=== PATIENT | male | born 1990 | race Two or more races ===

== ENCOUNTER 2016-12-02 15:17 | Emergency (ER) | payer SELFPAY ==
[2016-12-02] MEDS ORDERED: LIDOCAINE 1% INJ-PF (10 MG/ML) 30 ML SDV INJ ONE (16:14)
--- NOTE | 2016-12-02 16:14 | ER Document Report ---
ED Medical Screen (RME) - General Chief Complaint: Abscess Stated Complaint: RIGHT LEG PAIN Time Seen by Provider: 12/02/16 16:07 Mode of Arrival: Ambulatory Information source: Patient Notes: Pt is a 26 year old with multiple abscesses to right leg and one to the left x 1 week. He's cut them all with a razor blade that he sterilized and has been spraying hydrogen peroxide on them. Denies fever/chills, hx MRSA. TRAVEL OUTSIDE OF THE [place] IN LAST 30 DAYS: No - Related Data Allergies/Adverse Reactions: No Known Allergies Allergy (Verified 12/02/16 15:30) Past Medical History - General Information source: Patient Renal/ Medical History: Denies: Hx Peritoneal Dialysis - Immunizations Hx Diphtheria, Pertussis, Tetanus Vaccination: Yes Review of Systems - Review of Systems Skin: See HPI Physical Exam - Vital signs Vitals: Temp Pulse Resp BP Pulse Ox 98.7 F 88 16 141/96 H 98 12/02/16 15:28 12/02/16 15:28 12/02/16 15:28 12/02/16 15:28 12/02/16 15:28 - Notes Notes: General: in NAD, smiling SKIN: multiple fluctuant abscess to right lateral leg, one large on and multiple smaller ones, scabbed over, erythematous, tender, one to left medial lower leg Course - Vital Signs Vital signs: Temp Pulse Resp BP Pulse Ox 98.7 F 88 16 141/96 H 98 12/02/16 15:28 12/02/16 15:28 12/02/16 15:28 12/02/16 15:28 12/02/16 15:28
[2016-12-02] MEDS ORDERED: HYDROCODONE/ACETAMINOPHEN 5-325 MG TABLET PO ONE (16:15)
[2016-12-02] MEDS ORDERED: LIDOCAINE 1% INJ-PF (10 MG/ML) 30 ML SDV ONE (19:43)
[2016-12-02] MEDS ORDERED: CEPHALEXIN 500 MG CAPSULE PO ONE (19:45)
[2016-12-02] MEDS ORDERED: SULFAMETHOXAZOLE/TRIMETHOPRIM 800-160 MG TABLET PO ONE (19:45)
--- NOTE | 2016-12-02 19:49 | ER Document Report ---
ED Skin Rash/Insect Bite/Abscs - General Chief Complaint: Abscess Stated Complaint: RIGHT LEG PAIN Time Seen by Provider: 12/02/16 16:07 Mode of Arrival: Ambulatory Notes: The patient is a 26-year-old male, past medical history prior abscesses, presents with numerous abscesses on his right lower leg and small abscesses on his left leg. He was recently released from assisted 2 months ago. He has tried to I&D them with a sterile razor blade with some relief of the pressure. Patient denies history of IV drug use, fevers, numbness, tingling, difficulty walking or leg trauma. TRAVEL OUTSIDE OF THE [place] IN LAST 30 DAYS: No - Related Data Allergies/Adverse Reactions: No Known Allergies Allergy (Verified 12/02/16 15:30) Past Medical History - General Information source: Patient - Social History Smoking Status: Current Every Day Smoker Chew tobacco use (# tins/day): No Frequency of alcohol use: None Drug Abuse: None Family History: Reviewed & Not Pertinent Renal/ Medical History: Denies: Hx Peritoneal Dialysis - Immunizations Hx Diphtheria, Pertussis, Tetanus Vaccination: Yes Review of Systems - Review of Systems Notes: REVIEW OF SYSTEMS: CONSTITUTIONAL: -fevers, -chills EENT: -eye pain, -difficulty swallowing, -nasal congestion CARDIOVASCULAR:-chest pain, -syncope. RESPIRATORY: -cough, -SOB GASTROINTESTINAL: -abdominal pain, - nausea, -vomiting, -diarrhea GENITOURINARY: -dysuria, -hematuria MUSCULOSKELETAL: -back pain, -neck pain SKIN: +multiple leg abscesses HEMATOLOGIC: -easy bruising or bleeding. LYMPHATIC: -swollen, enlarged glands. NEUROLOGICAL: -altered mental status or loss of consciousness, -headache, - neurologic symptoms PSYCHIATRIC: -anxiety, -depression. ALL OTHER SYSTEMS REVIEWED AND NEGATIVE. Physical Exam - Vital signs Vitals: Temp Pulse Resp BP Pulse Ox 98.7 F 88 16 141/96 H 98 12/02/16 15:28 12/02/16 15:28 12/02/16 15:28 12/02/16 15:28 12/02/16 15:28 - Notes Notes: PHYSICAL EXAMINATION: GENERAL: Well-appearing, well-nourished and in no acute distress. HEAD: Atraumatic, normocephalic. EYES: Pupils equal round and reactive to light, extraocular movements intact, sclera anicteric, conjunctiva are normal. ENT: nares patent, oropharynx clear without exudates. Moist mucous membranes. NECK: Normal range of motion, supple without lymphadenopathy LUNGS: Breath sounds clear to auscultation bilaterally and equal. No wheezes rales or rhonchi. HEART: Regular rate and rhythm without murmurs ABDOMEN: Soft, nontender, normoactive bowel sounds. No guarding, no rebound. No masses appreciated. EXTREMITIES: Normal range of motion, no pitting or edema. No cyanosis. NEUROLOGICAL: Cranial nerves grossly intact. Normal speech, normal gait. Normal sensory and motor exams. PSYCH: Normal mood, normal affect. SKIN: 3 cm pointed abscess on lateral aspect of right lower leg, 3 cm pointed abscess on medial aspect of right lower leg, 2 cm pointed abscess on right anterior leg, multiple pustules on left anterior leg. Course - Re-evaluation Re-evalutation: Patient appears well. 3 abscesses incised and drained with serosanguineous discharge. There is surrounding cellulitis, so will begin Bactrim and Keflex. Given strict return precautions and he understands. - Vital Signs Vital signs: Temp Pulse Resp BP Pulse Ox 98.7 F 88 16 141/96 H 98 12/02/16 15:28 12/02/16 15:28 12/02/16 15:28 12/02/16 15:28 12/02/16 15:28 Procedures - Incision and Drainage Right Leg Time completed: 20:10 Type: Simple, Multiple Anesthetic type: 1% Lidocaine mL's of anesthetic: 15 Blade size: 11 I&D procedure: Betadine prep applied, Chlorprep applied, Shurclens applied, Sterile dressing applied Incision Method: Incision made by scalpel Amount/type of drainage: Serosanguineous drainage 15 mL Discharge - Discharge Clinical Impression: Multiple abscesses of both legs Condition: Stable Disposition: HOME, SELF-CARE Additional Instructions: ABSCESS: You have an abscess (boil). This a pus-forming infection, usually due to staph. Some boils may be left to drain on their own, but most require lancing. From the time the tender lump first appears, it may be three or four days before the abscess is ready to jermain. Local heat and rest help at this stage of treatment. An antibiotic may prevent spread of the infection. Once the abscess is opened, packing may be placed into it. This is done so pus is not sealed inside by premature closure of the cavity. The packing will be removed at your follow-up visit or you may be advised to remove it yourself at home. Sometimes this packing must be replaced a few times during healing. The wound will heal with surprisingly little scar. Depending on the size and location of an abscess, healing can take one to four weeks. You may shower and wash the area around the incision site two or three times a day. Antibiotics may be prescribed, but are usually not necessary after an abscess has been drained. If you develop fever, chills, worsening pain, or increasing swelling in the area, call the doctor or return immediately. POST INCISION AND DRAINAGE: You have had an incision made to allow drainage of an abscess. The incision must remain open so that pus and debris can drain from the wound. If the abscess cavity is large, packing is placed. This keeps the tissues from collapsing and trapping pus inside, while the body shrinks the cavity. The packing may need to be replaced every day or two. The physician will instruct you on the packing. Keep a bulky dressing over the area. Replace it if it becomes saturated with blood or pus. Do not disturb the packing (if present). You may shower and cleanse the area with gentle soap and warm water two or three times a day. Local warmth may be soothing, and may promote faster healing. Return if you develop high fever or chills, or if you note spreading redness, increasing swelling, or increasing tenderness. MRSA CELLULITIS: You have an infection of your skin and underlying soft tissues called cellulitis. This is due to bacteria, which can enter through any break in the skin, or even through an irritated hair follicle. Untreated, cellulitis will usually worsen and may form an abscess which requires draining. Although many bacterial organisms can cause cellulitis and abscess formations, the most likely bacteria is Methicillin-Resistant Staph Aureus, or MRSA for short. Antibiotics are required. Usually, warm packs or warm soaks, and elevation of the infected area are recommended. You should start getting better within 24 to 36 hours. Most infections respond quickly to the right medication. Follow-up care is important, however, to check for abscess (boil) formation, unsuspected foreign body, or resistant infection. If you develop fever, chills, or if the area of infection is becoming rapidly more swollen or painful, call the doctor at once. ORAL NARCOTIC MEDICATION: You have been given a prescription for pain control. This medication is a narcotic. It's best taken with food, as nausea can result if taken on an empty stomach. Don't operate machinery or drive within six hours of taking this medication. Do not combine this medicine with alcohol, or with any medication which can cause sedation (such as cold tablets or sleeping pills) unless you get permission from the physician. Narcotics tend to cause constipation. If possible, drink plenty of fluids and eat a diet high in fiber and fruits. CEPHALEXIN: The antibiotic you've been prescribed is a member of the cephalosporin class. This type of antibiotic covers a wide variety of infections, including those of the skin, lungs, and urinary tract. It's useful for staph infections. This antibiotic is slightly similar to the penicillin family. In rare cases , a person who is allergic to penicillin will also be allergic to this medication. If you have had a severe allergic reaction to penicillin, and have not taken this antibiotic since that time, notify your doctor. Antibiotics which cover many germs ("broad spectrum" antibiotics) are more likely to cause diarrhea or "yeast" infections. Women prone to vaginal yeast problems may suffer an attack after taking this antibiotic. In infants, oral thrush (white spots "stuck" on the cheek) or yeast diaper rash may result. See your doctor if these problems occur. Call at once if you develop itching, hives , shortness of breath, or lightheadedness. TRIMETHOPRIM-SULFA: You have been given a prescription for trimethoprim-sulfa (TMS, Septra, Bactrim). This is a combination antibiotic of the sulfa class, often used for urinary tract infections, middle ear infections, bronchitis, shigella intestinal infection, and Pneumocystis pneumonia. TMS is usually well-tolerated. Occasional side effects include nausea and decreased appetite. Septra is not recommended for infants less than two months of age. Do not take this medication if you have experienced severe side effects or allergy to sulfa medicine. You should stop this medicine at once and contact your physician if you develop any rash, joint pain, shortness of breath, bruising, or jaundice ( yellow color in the skin), or if you develop any other new or unusual symptoms. FOLLOW-UP CARE: Most simple abscesses will not require a follow up visit. If you had packing placed in the abscess, remove it as instructed by the physician. If you have been referred to a physician for follow-up care, call the physicians office for an appointment as you were instructed or within the next two days. If you experience worsening or a significant change in your symptoms, return to the Emergency Department at any time for re-evaluation. Prescriptions: Cephalexin Monohydrate [Keflex 500 mg Capsule] 500 mg PO Q8H 10 Days capsule Hydrocodone/Acetaminophen [[place] 5-325 mg Tablet] 1 tab PO Q6H PRN #7 tablet PRN Reason: Sulfamethoxazole/Trimethoprim [Bactrim Ds Tablet] 2 each PO Q12H 10 Days tablet Referrals: CHIOMA CHATMAN MD [ACTIVE STAFF] - Follow up as needed
[2016-12-02 21:08] VITALS: BP 138/82
== END 2016-12-02 20:45 | disposition home or self-care (01) ==
LOC: ER 15:17
PROC: 0H9KXZZ Drainage of Right Lower Leg Skin, External Approach (ICD-10-PCS; principal; 2016-12-02)
DX: L02.415 Cutaneous abscess of right lower limb (principal); L03.115 Cellulitis of right lower limb; L02.416 Cutaneous abscess of left lower limb; F17.200 Nicotine dependence, unspecified, uncomplicated
CPT/HCPCS: 99283

== ENCOUNTER 2018-06-16 22:44 | Inpatient (IN) | payer SELFPAY ==
[2018-06-16] MEDS ORDERED: FUROSEMIDE INJ/PF 20 MG/2 ML SDV ONE (22:55)
[2018-06-16] MEDS ORDERED: FUROSEMIDE INJ/PF 20 MG/2 ML SDV IV ONE (23:01)
--- NOTE | 2018-06-16 23:09 | ER Document Report ---
ED General - General Stated Complaint: POSSIBLE OVERDOSE Time Seen by Provider: 06/16/18 22:58 Cannot obtain history due to: Unstable vital signs, Altered mental status Notes: Patient is a 28-year old male who presents with complaints of shortness of breath. History is extremely limited secondary to the degree of the patient's acuity at time of presentation. EMS reports that the patient was found unresponsive in his bathroom by his significant other. EMS was called. Police did arrive first, administered 8 mg of intranasal naloxone. Patient then woke up but rather quickly developed shortness of breath and became diaphoretic. EMS noted that he became increasingly hypoxic in route to the hospital and required supplement oxygen application. Patient states that he knows that he took something but cannot recall what. Believes he only smoked marijuana. Denies history of similar symptoms in the past. Denies use of opiates. History is otherwise limited secondary to the patient's acuity. TRAVEL OUTSIDE OF THE [place] IN LAST 30 DAYS: No - Related Data Allergies/Adverse Reactions: No Known Allergies Allergy (Verified 12/02/16 15:30) Past Medical History - General Information source: Patient - Social History Smoking Status: Current Every Day Smoker Frequency of alcohol use: Occasional Drug Abuse: Marijuana Lives with: Spouse/Significant other Family History: Reviewed & Not Pertinent Renal/ Medical History: Denies: Hx Peritoneal Dialysis - Immunizations Hx Diphtheria, Pertussis, Tetanus Vaccination: Yes Review of Systems - Review of Systems Notes: Constitutional: Negative for fever. HENT: Negative for sore throat. Eyes: Negative for visual changes. Cardiovascular: Negative for chest pain. Respiratory: Positive for shortness of breath. Gastrointestinal: Negative for abdominal pain, positive for nausea Genitourinary: Negative for dysuria. Musculoskeletal: Negative for back pain. Skin: Negative for rash. Neurological: Negative for headaches, weakness or numbness. 10 point ROS negative except as marked above and in HPI. Physical Exam - Vital signs Vitals: Temp Pulse Resp BP Pulse Ox 98.5 F 133 H 28 H 94/76 L 75 L 06/16/18 22:45 06/16/18 22:45 06/16/18 22:45 06/16/18 22:45 06/16/18 22:45 Interpretation: Tachycardic, Hypoxic, Tachypneic Notes: PHYSICAL EXAMINATION: GENERAL: Ill in appearance, in distress HEAD: Atraumatic, normocephalic. EYES: Pupils equal round and reactive to light, extraocular movements intact, sclera anicteric, conjunctiva are normal. ENT: nares patent, oropharynx clear without exudates. Moderately dry mucous membranes. NECK: Normal range of motion, supple without lymphadenopathy LUNGS: Severe respiratory distress, breathing 45 times per minute, scattered rales in all lung mejia. Retractions in the supraclavicular and intercostal space is present. HEART: Regular tachycardia without murmurs ABDOMEN: Soft, nontender, normoactive bowel sounds. No guarding, no rebound. No masses appreciated. EXTREMITIES: Normal range of motion, no pitting or edema. No cyanosis. NEUROLOGICAL: No focal neurological deficits. Moves all extremities spontaneously and on command. PSYCH: Anxious, somewhat tremulous SKIN: Warm, Dry, normal turgor, no rashes or lesions noted. Course - Re-evaluation Re-evalutation: 06/16/18 23:12 Patient presents in respiratory distress, diffuse B-lines on bedside ultrasound with hypoxemia to 82% on room air after receiving 8 mg of intranasal naloxone for presumed opiate overdose. The patient appears unfortunately to be having Narcan induced pulmonary edema with associated respiratory distress. Patient will be immediately placed on BiPAP for positive pressure ventilation as well as given 20 mill grams of IV furosemide. Initial borderline hypotension immediately resolved some of my evaluation at 127 on 81 without any int ervention. Chest x-ray pending. Broad labs will be obtained. Patient is critically ill, require frequent and regular reassessments. 06/16/18 23:42 Patient ripped off all of his monitor leads, took off BiPAP and stood up to urinate. Patient's saturations dropped into the 70s when he did this he became quite tachycardic. Patient was placed back in the bed, BiPAP replaced, saturating 95% on 60% O2. Patient remains critically ill chest x-ray shows pulmonary edema pattern as anticipated based on ultrasound and clinical history. EKG shows sinus tachycardia otherwise unremarkable. Labs pending. 06/17/18 00:10 Patient's work of breathing it much improved on BiPAP. Saturating 96% on 60% FiO2. Heart rate downtrending to 130 currently. Blood pressure 117/80. Labs note a mildly elevated troponin at 0.05 likely secondary to pulmonary edema and work of breathing. BNP normal. Additional labs otherwise unremarkable. Urine drug screen pending. Will discuss with the hospitalist as patient will require admission on noninvasive positive pressure ventilation. 06/17/18 00:51 I have discussed this case with Dr. Man who has accepted the patient for admission. Patient remains clinically improving, current saturations at 98% on 60% FiO2. Heart rate in the 120s. - Vital Signs Vital signs: Temp Pulse Resp BP Pulse Ox 98.5 F 133 H 30 H 113/82 96 06/16/18 22:45 06/16/18 22:45 06/17/18 00:30 06/17/18 00:16 06/17/18 00:30 - Laboratory Result Diagrams: 06/16/18 23:00 06/16/18 23:00 Laboratory results interpreted by me: 06/16/18 06/16/18 23:00 23:00 WBC 18.3 H RBC 5.68 H Seg Neutrophils % 87.2 H Lymphocytes % 7.8 L Absolute Neutrophils 16.0 H Glucose 121 H Salicylates < 1.0 L Acetaminophen < 10 L - Diagnostic Test Radiology reviewed: Image reviewed, Reports reviewed Radiology results interpreted by me: 06/17/18 00:52 Chest x-ray: Scattered pulmonary edema bilaterally - EKG Interpretation by Me Additional EKG results interpreted by me: 06/17/18 00:52 Sinus tachycardia, rate 123. No ST elevations or depressions. QTC is 452. Critical Care Note - Critical Care Note Total time excluding time spent on procedures (mins): 40 Comments: Critical care time spent obtaining history from patient or surrogate, discussions with consultants, development of treatment plan with patient or surrogate, evaluation of patient's response to treatment, examination of patient, ordering and performing treatments and interventions, ordering and review of laboratory studies, re-evaluation of patient's condition, ordering and review of radiographic studies and review of old charts Discharge - Discharge Clinical Impression: Respiratory distress, Naloxone-induced pulmonary edema, Acute respiratory failure with hypoxia Pulmonary edema Qualifiers: Chronicity: acute Qualified Code(s): J81.0 - Acute pulmonary edema Condition: Fair Disposition: ADMITTED INPATIENT Admitting Provider: Hospitalist Unit Admitted: [facility]
[2018-06-16] MEDS ORDERED: ONDANSETRON HCL INJ/PF 4 MG/2 ML SDV ONE (23:10)
[2018-06-16] MEDS ORDERED: ONDANSETRON HCL INJ/PF 4 MG/2 ML SDV IV ONE (23:12)
[2018-06-16 23:18] LABS: ABSOLUTE LYMPHOCYTES (AUTO) 1.4 10^3/uL (0.5-4.7); ABSOLUTE MONOCYTES (AUTO) 0.9 10^3/uL (0.1-1.4); BASOPHILS % (AUTO) 0.1 % (0-2); EOSINOPHILS % (AUTO) 0.2 % (0-6); HEMATOCRIT 49.1 % (37.9-51.0); HEMOGLOBIN 16.2 g/dL (13.5-17.0); LYMPHOCYTES % (AUTO) 7.8 % (13-45); MEAN CORPUSCULAR HEMOGLOBIN 28.5 pg (27.0-33.4); MEAN CORPUSCULAR VOLUME 86 fl (80-97); MONOCYTES % (AUTO) 4.7 % (3-13); PLATELET COUNT 222 10^3/uL (150-450); RED BLOOD COUNT 5.68 10^6/uL (4.35-5.55); RED CELL DISTRIBUTION WIDTH 13.8 % (11.5-14.0); SEGMENTED NEUTROPHILS % (AUTO) 87.2 % (42-78); TOTAL CELLS COUNTED % (AUTO) 100 %; VENOUS BLOOD BASE EXCESS -1.6 mmol/L; VENOUS BLOOD HCO3 24.9 mmol/L (20-32); VENOUS BLOOD PH 7.33 (7.30-7.42); WHITE BLOOD COUNT 18.3 10^3/uL (4.0-10.5)
[2018-06-16 23:34] LABS: ALANINE AMINOTRANSFERASE 44 U/L (21-72); ALBUMIN 4.3 g/dL (3.5-5.0); ALKALINE PHOSPHATASE 43 U/L (38-126); ANION GAP 12 (5-19); ASPARTATE AMINO TRANSFERASE 45 U/L (17-59); BILIRUBIN,DIRECT 0.2 mg/dL (0.0-0.4); BILIRUBIN,TOTAL 0.3 mg/dL (0.2-1.3); BLOOD UREA NITROGEN 13 mg/dL (7-20); CALCIUM 9.1 mg/dL (8.4-10.2); CARBON DIOXIDE 25 mmol/L (22-30); CHLORIDE 103 mmol/L (98-107); GLUCOSE 121 mg/dL (75-110); POTASSIUM 4.1 mmol/L (3.6-5.0); SODIUM 140.3 mmol/L (137-145)
[2018-06-16 23:37] LABS: ACETAMINOPHEN < 10 ug/mL (10-30); ALCOHOL < 10 mg/dL (NONE DETECTED); SALICYLATE < 1.0 mg/dL (2.0-20.0)
[2018-06-16 23:46] LABS: TROPONIN I 0.05 ng/mL
--- NOTE | 2018-06-17 00:03 | RADIOLOGY REPORT (SQ) ---
EXAM DESCRIPTION: XR CHEST 1 VIEW COMPLETED DATE/TME: 06/16/2018 23:00 CLINICAL HISTORY: 28 years, Male, hypoxia, distress Comparison: None FINDINGS: Diffuse hazy appearance of the lungs bilaterally. No pleural abnormalities. Cardiac silhouette is normal in size. IMPRESSION: Diffuse hazy appearance of the lungs may be related to edema. There is no focal pulmonary opacity.
[2018-06-17 00:05] LABS: APPEARANCE,URINE CLEAR; BILIRUBIN,URINE NEGATIVE (NEGATIVE); COLOR,URINE STRAW; GLUCOSE, URINE NEGATIVE (NEGATIVE); KETONES,URINE NEGATIVE (NEGATIVE); LEUKOCYTE ESTERASE,URINE NEGATIVE (NEGATIVE); NITRITE,URINE NEGATIVE (NEGATIVE); PROTEIN,URINE NEGATIVE (NEGATIVE); UROBILINOGEN,URINE NEGATIVE mg/dL (<2.0)
[2018-06-17 00:14] LABS: URINE AMPHETAMINES SCREEN UNCONFIRMED POSITIVE; URINE BARBITURATES SCREEN NEGATIVE; URINE BENZODIAZEPINES SCREEN NEGATIVE; URINE COCAINE SCREEN NEGATIVE; URINE MARIJUANA (THC) SCREEN NEGATIVE; URINE METHADONE SCREEN NEGATIVE; URINE PHENCYCLIDINE SCREEN NEGATIVE
[2018-06-17] MEDS ORDERED: ACETAMINOPHEN 325 MG TABLET PO PRN (00:41)
[2018-06-17] MEDS ORDERED: HYDRALAZINE HCL INJ/PF 20 MG/1 ML SDV IV PRN (00:41)
[2018-06-17] MEDS ORDERED: IPRATROPIUM/ALBUTEROL 0.5-2.5 MG/3 ML AMPUL NEB PRN (00:41)
[2018-06-17] MEDS ORDERED: LORAZEPAM INJ 2 MG/1 ML VIAL IV PRN (00:41)
[2018-06-17] MEDS ORDERED: MAG HYDROX/AL HYDROX/SIMETH SUSP 30 ML UDCUP PO PRN (00:41)
[2018-06-17 01:19] LABS: PHOSPHORUS 5.7 mg/dL (2.5-4.5)
[2018-06-17 03:18] VITALS: BP 112/75
[2018-06-17] MEDS ORDERED: HEPARIN SOD (PORCINE) 5,000 UNIT/ML 1 ML SYRINGE SUBCUT SCH (06:00)
--- NOTE | 2018-06-17 06:38 | H&P/Discharge Summary ---
Discharge Summary Admission Date/PCP: 06/17/18 01:04 Discharge Date: 06/17/18 Resuscitation Status: Full Code - Discharge Diagnosis (1) Acute respiratory failure with hypoxia Is this a current diagnosis for this admission?: Yes Summary: Patient found unresponsive in bathroom by significant other of unclear duration, EMS administers 8 mg of intranasal Narcan resulting in prompt awakening with tachypnea and tachycardia. In the emergency room he was short of breath with persistent tachypnea, leukocytosis and a chest x-ray with pulmonary edema. Patient denied substance abuse or current medications but urine drug screen positive for amphetamine only. He is referred to the hospitalist for admission requiring oxygen and BiPAP. Promptly after arrival to the telemetry floor he is refusing BiPAP with oxygen saturations of 97% on room air with resolution of tachypnea insisting on leaving AGAINST MEDICAL ADVICE. (2) Overdose Is this a current diagnosis for this admission?: Yes Summary: Patient admits marijuana to ER provider, urine drug screen positive for amphetamine, immediate Narcan resolution of obtundation suggest opiate overdose. Patient did not require further doses of Narcan. Supportive care refusing counseling (3) Substance abuse Is this a current diagnosis for this admission?: Yes Summary: Please see #2 (4) Leukocytosis Is this a current diagnosis for this admission?: Yes Summary: Suspected stress reaction, no fever patient refuses further investigation or treatment leaving AMA Home Medications: Carbamazepine [Tegretol 200 mg Tablet] 400 mg PO DAILY 06/17/18 Carbamazepine [Tegretol 200 mg Tablet] 600 mg PO HSP PRN 06/17/18 Mirtazapine [Remeron] 60 mg PO HSP PRN 06/17/18 Sertraline HCl [Zoloft] 100 mg PO DAILY 06/17/18 Ziprasidone HCl [Geodon] 80 mg PO HSP PRN 06/17/18 Allergies/Adverse Reactions: No Known Allergies Allergy (Verified 12/02/16 15:30) History of Present Illness Admission Date/PCP: 06/17/18 01:04 Patient complains of: Altered mental status History of Present Illness: JOHN THAPA is a 28 year old male with history of bipolar versus schizophrenia, tobacco and polysubstance abuse found unresponsive in bathroom by significant other of unclear duration, EMS administers 8 mg of intranasal Narcan resulting in prompt awakening with tachypnea and tachycardia. In the emergency room he was short of breath with persistent tachypnea, leukocytosis and a chest x-ray with pulmonary edema. Patient denied substance abuse or current medications but urine drug screen positive for amphetamine only. He is referred to the hospitalist for admission requiring oxygen and BiPAP. Promptly after arrival to the telemetry floor he is refusing BiPAP with oxygen saturations of 97% on room air with resolution of tachypnea insisting on leaving AGAINST MEDICAL ADVICE. Past Medical History Medical History: None Cardiac Medical History: Reports: None Pulmonary Medical History: Reports: Bronchitis EENT Medical History: Reports: None Neurological Medical History: Reports: None Endocrine Medical History: Reports: None Renal/ Medical History: Reports: None Malignancy Medical History: Reports: None GI Medical History: Reports: None Musculoskeltal Medical History: Reports: None Psychiatric Medical History: Reports: Bipolar Disorder, Schizoaffective Diso rder, Substance Abuse, Tobacco Dependency Past Surgical History Past Surgical History: Reports: None Social History Information Source: Patient, Emergency Med Personnel, [facility] Records Lives with: Spouse/Significant other Smoking Status: Current Every Day Smoker Cigarettes Packs Per Day: 0.5 Frequency of Alcohol Use: None Hx Recreational Drug Use: Yes Drugs: Marijuana, Other - Amphetamine and opiate Hx Prescription Drug Abuse: No - Advance Directive Resuscitation Status: Full Code Family History Family History: COPD Parental Family History Reviewed: Yes Children Family History Reviewed: Yes Sibling(s) Family History Reviewed.: Yes Review of Systems Constitutional: ABSENT: chills, fever(s), headache(s), weight gain, weight loss Eyes: ABSENT: visual disturbances Ears: ABSENT: hearing changes Cardiovascular: ABSENT: chest pain, dyspnea on exertion, edema, orthropnea, pa lpitations Respiratory: ABSENT: cough, hemoptysis Gastrointestinal: ABSENT: abdominal pain, constipation, diarrhea, hematemesis, hematochezia, nausea, vomiting Genitourinary: ABSENT: dysuria, hematuria Musculoskeletal: ABSENT: joint swelling Integumentary: ABSENT: rash, wounds Neurological: ABSENT: abnormal gait, abnormal speech, confusion, dizziness, focal weakness, syncope Psychiatric: ABSENT: anxiety, depression, homidical ideation, suicidal ideation Endocrine: ABSENT: cold intolerance, heat intolerance, polydipsia, polyuria Hematologic/Lymphatic: ABSENT: easy bleeding, easy bruising Physical Exam Vital Signs: Temp Pulse Resp BP Pulse Ox 97.9 F 131 H 26 H 112/75 100 03/02/19 02:47 06/17/18 02:47 06/17/18 02:47 06/17/18 02:47 06/17/18 02:47 Intake & Output 06/15/18 06/16/18 06/17/18 11:59 11:59 11:59 Weight 85.3 kg General appearance: PRESENT: cooperative, disheveled, mild distress, well- developed, well-nourished. ABSENT: no acute distress Head exam: PRESENT: atraumatic, normocephalic Eye exam: PRESENT: conjunctiva pink, EOMI, PERRLA. ABSENT: scleral icterus Ear exam: PRESENT: normal external ear exam Mouth exam: PRESENT: moist, tongue midline Neck exam: ABSENT: carotid bruit, JVD, lymphadenopathy, thyromegaly Respiratory exam: PRESENT: accessory muscle use, crackles, retraction, symmetrical, tachypnea. ABSENT: rhonchi, stridor, wheezes Cardiovascular exam: PRESENT: RRR. ABSENT: diastolic murmur, rubs, systolic murmur Pulses: PRESENT: normal dorsalis pedis pul Vascular exam: PRESENT: normal capillary refill GI/Abdominal exam: PRESENT: normal bowel sounds, soft. ABSENT: distended, guarding, mass, organolmegaly, rebound, tenderness Rectal exam: PRESENT: deferred Extremities exam: PRESENT: full ROM. ABSENT: calf tenderness, clubbing, pedal edema Neurological exam: PRESENT: alert, awake, oriented to person, oriented to place, oriented to time, oriented to situation, CN II-XII grossly intact. ABSENT: motor sensory deficit Psychiatric exam: PRESENT: appropriate affect, normal mood. ABSENT: homicidal ideation, suicidal ideation Skin exam: PRESENT: dry, intact, warm. ABSENT: cyanosis, rash Results Laboratory Results: 06/16/18 23:00 06/16/18 23:00 06/16/18 06/16/18 06/16/18 23:00 23:00 23:00 WBC 18.3 H RBC 5.68 H Hgb 16.2 Hct 49.1 MCV 86 MCH 28.5 MCHC 33.0 RDW 13.8 Plt Count 222 Seg Neutrophils % 87.2 H Lymphocytes % 7.8 L Monocytes % 4.7 Eosinophils % 0.2 Basophils % 0.1 Absolute Neutrophils 16.0 H Absolute Lymphocytes 1.4 Absolute Monocytes 0.9 Absolute Eosinophils 0.0 Absolute Basophils 0.0 VBG pH 7.33 VBG pCO2 48.0 VBG HCO3 24.9 VBG Base Excess -1.6 Sodium 140.3 Potassium 4.1 Chloride 103 Carbon Dioxide 25 Anion Gap 12 BUN 13 Creatinine 0.92 Est GFR ( Amer) > 60 Est GFR (Non-Af Amer) > 60 Glucose 121 H Calcium 9.1 Phosphorus Magnesium Total Bilirubin 0.3 AST 45 ALT 44 Alkaline Phosphatase 43 Total Protein 7.0 Albumin 4.3 Urine Color Urine Appearance Urine pH Ur Specific [place] Urine Protein Urine Glucose (UA) Urine Ketones Urine Blood Urine Nitrite Ur Leukocyte Esterase Urine WBC (Auto) Urine RBC (Auto) 06/16/18 06/16/18 23:00 23:47 WBC RBC Hgb Hct MCV MCH MCHC RDW Plt Count Seg Neutrophils % Lymphocytes % Monocytes % Eosinophils % Basophils % Absolute Neutrophils Absolute Lymphocytes Absolute Monocytes Absolute Eosinophils Absolute Basophils VBG pH VBG pCO2 VBG HCO3 VBG Base Excess Sodium Potassium Chloride Carbon Dioxide Anion Gap BUN Creatinine Est GFR ( Amer) Est GFR (Non-Af Amer) Glucose Calcium Phosphorus 5.7 H Magnesium 2.2 Total Bilirubin AST ALT Alkaline Phosphatase Total Protein Albumin Urine Color STRAW Urine Appearance CLEAR Urine pH 6.0 Ur Specific [place] 1.010 Urine Protein NEGATIVE Urine Glucose (UA) NEGATIVE Urine Ketones NEGATIVE Urine Blood NEGATIVE Urine Nitrite NEGATIVE Ur Leukocyte Esterase NEGATIVE Urine WBC (Auto) 5 Urine RBC (Auto) 0 06/16/18 23:00 Troponin I 0.050 NT-Pro-B Natriuret Pep 51 Impressions: Chest X-Ray 06/16/18 23:00 IMPRESSION: Diffuse hazy appearance of the lungs may be related to edema. There is no focal pulmonary opacity. Qualifiers - * PATIENT BEING DISCHARGED WITH ANY OF THE FOLLOWING DIAGNOSIS: No
[2018-06-17] MEDS ORDERED: IPRATROPIUM/ALBUTEROL 0.5-2.5 MG/3 ML AMPUL NEB SCH (08:00)
--- NOTE | 2018-06-17 16:33 | EKG REPORT ---
SEVERITY:- OTHERWISE NORMAL ECG - SINUS TACHYCARDIA RIGHT AXIS DEVIATION : Confirmed by: Destiny Lucas 17-Jun-2018 16:32:34
== END 2018-06-17 05:01 | disposition left against medical advice (07) | DRG 917 ==
LOC: ER 22:44 → EH 06-17 01:04 → 3S 06-17 02:40
PROVIDERS: ADMIT Internal Medicine; ATTEND Internal Medicine
PROC: 5A09357 Assistance with Respiratory Ventilation, Less than 24 Consecutive Hours, Continuous Positive Airway Pressure (ICD-10-PCS; principal; 2018-06-17)
DX: T40.601A Poisoning by unspecified narcotics, accidental (unintentional), initial encounter (principal); J96.01 Acute respiratory failure with hypoxia; Y92.002 Bathroom of unspecified non-institutional (private) residence as the place of occurrence of the external cause; F31.9 Bipolar disorder, unspecified; F15.10 Other stimulant abuse, uncomplicated; F12.10 Cannabis abuse, uncomplicated
CPT/HCPCS: 36415; 71045; 80053; 80307; 81001; 82803; 83735; 83880; 84100; 84484; 85025; 87040; 93005; 93010; 94660; 96374; 96375; 99291; J1940; J2405

== ENCOUNTER 2018-09-25 20:53 | Emergency (ER) | payer SELFPAY ==
[2018-09-25] MEDS ORDERED: HALOPERIDOL 5 MG TABLET PO ONE (21:27)
--- NOTE | 2018-09-25 21:29 | ER Document Report ---
Addendum entered and electronically signed by BORA PETERS MD 09/28/18 11:41: Discharge - Discharge Clinical Impression: Suicidal ideation, Involuntary commitment, Substance abuse Condition: Stable Disposition: HOME, SELF-CARE Additional Instructions: You have been evaluated both medical and behavioral health teams and been deemed appropriate for discharge. You are highly encouraged to refrain from using illegal substances and follow through with outpatient mental health services in the form of both medication management and therapeutic services. You have been provided a resource list of area providers including mobile crisis contact information. Please make an appointment in 3 to 5 days of your chosen mental health provider for continued services. DEPRESSION: Your evaluation reveals that you have mental depression. While symptoms may be vague, they often include disturbance of sleep, fatigue, loss of appetite, and general loss of interest in life. While depression may be a side effect of drugs, or a reaction to a major change in your life, many cases have no known cause. If depression is acute, and related to a major loss in your life, you can expect it to clear completely with time. If you have been depressed a long time, are prone to repeated bouts of depression or low mood, or have been thinking of suicide, get help. Depression can be treated with anti-depressant medication and counselling. Long-term depression will often take a few weeks to clear, even with appropriate medication. Follow-up care is important. SUICIDAL IDEATION: Suicidal ideation is a common medical term for thoughts about suicide, which may be as detailed as a formulated plan, without the suicidal act itself. Although most people who undergo suicidal ideation do not commit suicide, some go on to make suicide attempts. The range of suicidal ideation varies greatly from fleeting to detailed planning, role playing, and unsuccessful attempts. While thoughts about suicide are common, most people do not carry out serious actions to commit suicide. Based upon your evaluation and discussion with you, we do not believe you are currently at risk to act upon your thoughts of suicide. You have agreed to return to the Emergency Department, at any time, if you feel inclined to act upon your suicidal thoughts. FOLLOW-UP CARE: If you have been referred to a physician for follow-up care, call the physicians office for an appointment as you were instructed or within the next two days. If you experience worsening or a significant change in your symptoms, notify the physician immediately or return to the Emergency Department at any time for re-evaluation. Prescriptions: Carbamazepine [Tegretol 200 Mg Tablet] 400 mg PO BID #50 tablet Referrals: [facility] [Outside] - Follow up in 3-5 days [facility] [Outside] - Follow up as needed Addendum entered and electronically signed by MARCEL COYLE LCSWA 09/28/18 11:15: Discharge - Discharge Clinical Impression: Suicidal ideation, Involuntary commitment, Substance abuse Condition: Stable Disposition: HOME, SELF-CARE Additional Instructions: You have been evaluated both medical and behavioral health teams and been deemed appropriate for discharge. You are highly encouraged to refrain from using illegal substances and follow through with outpatient mental health services in the form of both medication management and therapeutic services. You have been provided a resource list of area providers including mobile crisis contact information. Please make an appointment in 3 to 5 days of your chosen mental health provider for continued services. DEPRESSION: Your evaluation reveals that you have mental depression. While symptoms may be vague, they often include disturbance of sleep, fatigue, loss of appetite, and general loss of interest in life. While depression may be a side effect of drugs, or a reaction to a major change in your life, many cases have no known cause. If depression is acute, and related to a major loss in your life, you can expect it to clear completely with time. If you have been depressed a long time, are prone to repeated bouts of depression or low mood, or have been thinking of suicide, get help. Depression can be treated with anti-depressant medication and counselling. Long-term depression will often take a few weeks to clear, even with appropriate medication. Follow-up care is important. SUICIDAL IDEATION: Suicidal ideation is a common medical term for thoughts about suicide, which may be as detailed as a formulated plan, without the suicidal act itself. Although most people who undergo suicidal ideation do not commit suicide, some go on to make suicide attempts. The range of suicidal ideation varies greatly f rom fleeting to detailed planning, role playing, and unsuccessful attempts. While thoughts about suicide are common, most people do not carry out serious actions to commit suicide. Based upon your evaluation and discussion with you, we do not believe you are currently at risk to act upon your thoughts of suicide. You have agreed to return to the Emergency Department, at any time, if you feel inclined to act upon your suicidal thoughts. FOLLOW-UP CARE: If you have been referred to a physician for follow-up care, call the physicians office for an appointment as you were instructed or within the next two days. If you experience worsening or a significant change in your symptoms, notify the physician immediately or return to the Emergency Department at any time for re-evaluation. Referrals: [facility] [Outside] - Follow up as needed [facility] [Outside] - Follow up in 3-5 days Original Note: ED General - General Chief Complaint: Psych Problem Stated Complaint: PSYCH Time Seen by Provider: 09/25/18 21:27 Cannot obtain history due to: Altered mental status Notes: Patient is a 28-year-old male with a past medical history unspecified psychiatric illness, history of polysubstance abuse, presents by police officers on involuntary commitment after allegedly threatened to commit suicide today. Patient is a very evasive historian, states that "I might of said something" and his counselors office today. Refuses to elaborate further. History is otherwise unobtainable secondary to patient's unwillingness to cooperate with initial history taking. Denies acute physical complaints. Denies making any attempt to harm himself today. TRAVEL OUTSIDE OF THE [place] IN LAST 30 DAYS: No - Related Data Allergies/Adverse Reactions: No Known Allergies Allergy (Verified 12/02/16 15:30) Past Medical History - General Information source: Patient - Social History Smoking Status: Current Every Day Smoker Chew tobacco use (# tins/day): No Frequency of alcohol use: Occasional Drug Abuse: Heroin Family History: Reviewed & Not Pertinent, COPD Patient has suicidal ideation: Yes Patient has homicidal ideation: No Pulmonary Medical History: Reports: Hx Bronchitis Renal/ Medical History: Denies: Hx Peritoneal Dialysis Psychiatric Medical History: Reports: Hx Bipolar Disorder, Hx Schizoaffective Disorder - Immunizations Hx Diphtheria, Pertussis, Tetanus Vaccination: Yes Review of Systems - Review of Systems Notes: Constitutional: Negative for fever. HENT: Negative for sore throat. Eyes: Negative for visual changes. Cardiovascular: Negative for chest pain. Respiratory: Negative for shortness of breath. Gastrointestinal: Negative for abdominal pain, vomiting or diarrhea. Genitourinary: Negative for dysuria. Musculoskeletal: Negative for back pain. Skin: Negative for rash. Neurological: Negative for headaches, weakness or numbness. 10 point ROS negative except as marked above and in HPI. Physical Exam - Vital signs Vitals: Temp Pulse Resp BP 98.7 F 92 16 130/81 H 09/25/18 20:57 09/25/18 20:57 09/25/18 20:57 09/25/18 20:57 Interpretation: Normal Notes: PHYSICAL EXAMINATION: GENERAL: Well-appearing, well-nourished and in no acute distress. HEAD: Atraumatic, normocephalic. EYES: Pupils equal round and reactive to light, extraocular movements intact, sclera anicteric, conjunctiva are normal. ENT: nares patent, oropharynx clear without exudates. Moist mucous membranes. NECK: Normal range of motion, supple without lymphadenopathy LUNGS: Breath sounds clear to auscultation bilaterally and equal. No wheezes rales or rhonchi. HEART: Regular rate and rhythm without murmurs ABDOMEN: Soft, nontender, normoactive bowel sounds. No guarding, no rebound. No masses appreciated. EXTREMITIES: Normal range of motion, no pitting or edema. No cyanosis. NEUROLOGICAL: No focal neurological deficits. Moves all extremities spontaneously and on command. PSYCH: Poor eye contact, somewhat agitated, redirectable SKIN: Warm, Dry, normal turgor, no rashes or lesions noted. Course - Re-evaluation Re-evalutation: 09/25/18 21:28 Patient presents after apparently expressing suicidal ideation as well as visual hallucinations office today. The patient is quite evasive with me on history taking, states that he "might have said something". Did not give any additional details. Seems somewhat agitated but is otherwise redirectable. Will offer or haloperidol to try to prevent escalation. Standard screening labs will be ordered. Physical exam otherwise unremarkable. Cleared for evaluation and disposition by [facility] in the morning. 09/26/18 04:15 Medical screening labs unremarkable. Patient is still not urinated. Otherwise cleared for evaluation and disposition by [facility]. - Vital Signs Vital signs: Temp Pulse Resp BP Pulse Ox 97.4 F 63 20 137/66 H 99 09/26/18 00:14 09/26/18 00:14 09/26/18 00:14 09/26/18 00:14 09/26/18 00:14 - Laboratory Result Diagrams: 09/25/18 22:54 09/25/18 22:54 Laboratory results interpreted by me: 09/25/18 09/25/18 22:54 22:54 WBC 11.7 H RDW 14.5 H Glucose 112 H Salicylates < 1.0 L Acetaminophen < 10 L - EKG Interpretation by Me Additional EKG results interpreted by me: 09/26/18 04:16 Sinus rhythm, rate 57, no ST elevations or depressions. QTC is 421. Discharge - Discharge Clinical Impression: Suicidal ideation, Involuntary commitment Condition: Fair Disposition: PSYCH HOSP/UNIT
[2018-09-25 23:06] LABS: ABSOLUTE BASOPHILS # (AUTO) 0.1 10^3/uL (0.0-0.2); ABSOLUTE EOSINOPHILS # (AUTO) 0.2 10^3/uL (0.0-0.6); ABSOLUTE LYMPHOCYTES (AUTO) 2.3 10^3/uL (0.5-4.7); ABSOLUTE MONOCYTES (AUTO) 1.1 10^3/uL (0.1-1.4); ABSOLUTE NEUT (AUTO) 8.1 10^3/uL (1.7-8.2); BASOPHILS % (AUTO) 0.4 % (0-2); EOSINOPHILS % (AUTO) 1.5 % (0-6); HEMATOCRIT 43.8 % (37.9-51.0); HEMOGLOBIN 14.6 g/dL (13.5-17.0); LYMPHOCYTES % (AUTO) 19.4 % (13-45); MEAN CORPUSCULAR HEMOGLOBIN 27.7 pg (27.0-33.4); MEAN CORPUSCULAR HGB CONC 33.4 g/dL (32.0-36.0); MEAN CORPUSCULAR VOLUME 83 fl (80-97); MONOCYTES % (AUTO) 9.5 % (3-13); PLATELET COUNT 200 10^3/uL (150-450); RED BLOOD COUNT 5.27 10^6/uL (4.35-5.55); RED CELL DISTRIBUTION WIDTH 14.5 % (11.5-14.0); SEGMENTED NEUTROPHILS % (AUTO) 69.2 % (42-78); TOTAL CELLS COUNTED % (AUTO) 100 %; WHITE BLOOD COUNT 11.7 10^3/uL (4.0-10.5)
[2018-09-25 23:23] LABS: ALANINE AMINOTRANSFERASE 39 U/L (21-72); ALBUMIN 4.3 g/dL (3.5-5.0); ALKALINE PHOSPHATASE 46 U/L (38-126); ANION GAP 10 (5-19); ASPARTATE AMINO TRANSFERASE 30 U/L (17-59); BILIRUBIN,DIRECT 0.2 mg/dL (0.0-0.4); BILIRUBIN,TOTAL 0.5 mg/dL (0.2-1.3); BLOOD UREA NITROGEN 8 mg/dL (7-20); CALCIUM 9.1 mg/dL (8.4-10.2); CARBON DIOXIDE 28 mmol/L (22-30); CHLORIDE 103 mmol/L (98-107); GLUCOSE 112 mg/dL (75-110); POTASSIUM 3.6 mmol/L (3.6-5.0); SODIUM 140.8 mmol/L (137-145); TOTAL PROTEIN 7.2 g/dL (6.3-8.2)
[2018-09-25 23:30] LABS: ACETAMINOPHEN < 10 ug/mL (10-30); ALCOHOL < 10 mg/dL (NONE DETECTED); SALICYLATE < 1.0 mg/dL (2.0-20.0)
--- NOTE | 2018-09-26 07:42 | EKG REPORT ---
SEVERITY:- OTHERWISE NORMAL ECG - SINUS RHYTHM BORDERLINE RIGHT AXIS DEVIATION : Confirmed by: Jean-Pierre Roberto MD 26-Sep-2018 07:41:48
[2018-09-26] MEDS: CARBAMAZEPINE 200 MG TABLET PO SCH ×2 (11:50→17:24)
[2018-09-26] MEDS: BENZTROPINE MESYLATE 1 MG TABLET PO SCH ×2 (11:50→17:24)
[2018-09-26] MEDS: CHLORPROMAZINE HCL 50 MG TABLET PO SCH ×2 (11:50→20:16)
--- NOTE | 2018-09-26 15:27 | PSYCHOLOGICAL NOTE ---
Psych Note - Psych Note Date seen by psych provider: 09/26/18 Psych Note: Presenting Problem: IVC via MCM, SI statements, pacing, talking to himself, noted Hx of A/V Hallucinations and was aggressive towards LE. He was uncooperative with changing clothes and said he did not want to talk with an yone. He was physically restrained and administered Haldol 5MG last night at 2151. Today he was in bed covered from head to toe with his sheet. He did remove sheet from head/face, turned head from side to side, mumbled to self, covered head/face back up with sheet and said "I can't think straight sorry." Still waiting on UDS. Home medications were listed as Geodon 80MG QHS PRN, Zoloft 100MG QD, Remeron 60MG QHS PRN and Tegretol 600MG QHS PRN. Diagnosis: SI Unspecified Psychosis Medication recommendations made by the psychiatric medical provider, Dr. Allie MD., includes: Add Tegretol 500MG twice a day (unsure if was for seizure disorder)/mood stabilization Add Thorazine 50MG every 8 hours for psychosis Add Cogentin 1MG twice a day for tremor side effects often associated with antipsychotic medications Impression/Plan: Recommendation to maintain IVC and seek inpatient hospitalization.
[2018-09-26 17:47] LABS: APPEARANCE,URINE CLEAR; BILIRUBIN,URINE NEGATIVE (NEGATIVE); COLOR,URINE YELLOW; GLUCOSE, URINE NEGATIVE (NEGATIVE); KETONES,URINE NEGATIVE (NEGATIVE); LEUKOCYTE ESTERASE,URINE NEGATIVE (NEGATIVE); NITRITE,URINE NEGATIVE (NEGATIVE); PROTEIN,URINE NEGATIVE (NEGATIVE); URINE SPECIFIC GRAVITY 1.008; UROBILINOGEN,URINE NEGATIVE mg/dL (<2.0)
[2018-09-26 17:59] LABS: URINE BARBITURATES SCREEN NEGATIVE; URINE BENZODIAZEPINES SCREEN NEGATIVE; URINE COCAINE SCREEN NEGATIVE; URINE MARIJUANA (THC) SCREEN NEGATIVE; URINE METHADONE SCREEN NEGATIVE; URINE PHENCYCLIDINE SCREEN NEGATIVE
--- NOTE | 2018-09-26 19:41 | ER Document Report ---
Entered by ANGEL CHRISTIANSON SCRIBE 09/26/18 1035 Acting as scribe for:ISHAAN FREITAS DO Doctor's Note Notes: 09/26/18 10:10 Patient is a 28-year-old male with a past medical history unspecified psychiatric illness, history of polysubstance abuse, presents by police officers on involuntary commitment after allegedly threatened to commit suicide today. Upon entering the room, the patient is sleeping and will not answer any questions. Will follow commands to open eyes and acknowledges there is a food tray in the room. I explained to patient I will come back whenever he is ready to speak. Patient is medically stable. GENERAL: Initially sleeping. Follows some commands. Does not answer most questions. No acute distress. HEAD: Normocephalic, atraumatic. EYES: Pupils equal, round, and reactive to light. Extraocular movements intact. ENT: Oral mucosa moist, tongue midline. NECK: Full range of motion. Supple. Trachea midline. LUNGS: Clear to auscultation bilaterally, no wheezes, rales, or rhonchi. No respiratory distress. HEART: Regular rate and rhythm. No murmurs, gallops, or rubs. ABDOMEN: Soft, non-tender. Non-distended. Bowel sounds present in all 4 quadrants. No guarding, rigidity, or rebound. EXTREMITIES: Moves all 4 extremities spontaneously. NEUROLOGICAL: Sleeping, follows some commands. Does not answer questions. PSYCH: Does not answer most questions. SKIN: Warm, dry, normal turgor. No rashes or lesions noted. 09/26/18 11:23 Have added orders for Tegretol 500 mg twice a day, Thorazine 50 mg every 8 hours and Cogentin 1 mg twice a day as per recommendations by Dr. Kelley. I personally performed the services described in the documentation, reviewed and edited the documentation which was dictated to the scribe in my presence, and it accurately records my words and actions.
[2018-09-27] MEDS: CHLORPROMAZINE HCL 50 MG TABLET PO SCH ×2 (03:20→10:44)
--- NOTE | 2018-09-27 10:18 | ER Document Report ---
Doctor's Note Notes: 09/27/18 10:16 Rounds: Chart reviewed. Patient sleeping soundly did not awaken to my voice so I am going to let him sleep at this time. Being evaluated for an acute psychosis. Reported in the chart that he was suicidal as well. Vital signs are all normal. Lab work was normal except for a clinically insignificant WBC of 11,700. Patient appears to be medically stable for transfer or discharge. Felice Benites MD
[2018-09-27] MEDS: CARBAMAZEPINE 200 MG TABLET PO SCH ×2 (10:40→18:10)
[2018-09-27] MEDS: BENZTROPINE MESYLATE 1 MG TABLET PO SCH ×2 (10:43→18:13)
--- NOTE | 2018-09-27 11:59 | PSYCHOLOGICAL NOTE ---
Psych Note - Psych Note Psych Note: Presenting Problem: IVC via [facility] MCM, Acute Psychosis. Medical staff spoke with patient's work hydrochloric area supervisor last night who noted a Hx of Schizophrenia, noncompliance with medication recently and likely drug use. UDS was positive for methamphetamine. patient admitted to use, did not know when he last used, admitted to and commented "it's too much." He remained guarded as evidenced by staying covered by sheet from head to toe. Diagnosis: SI Unspecified Psychosis Impression/Plan: Recommendation to maintain IVC and continue seeking placement. Work Ship Rigger Apprentice informed medical staff of Hx of Schizophrenia, noncompliance with medication recently and suspected drug use. Consulted with Dr. Espinoza regarding the management and care of patient. ED Physician in agreement with recommendations.
[2018-09-28] MEDS: CARBAMAZEPINE 200 MG TABLET PO SCH (10:13)
[2018-09-28] MEDS: BENZTROPINE MESYLATE 1 MG TABLET PO SCH (10:14)
[2018-09-28 10:19] VITALS: BP 115/66
[2018-09-28] MEDS: CHLORPROMAZINE HCL 50 MG TABLET PO SCH (10:36)
--- NOTE | 2018-09-28 10:36 | ER Document Report ---
Doctor's Note Notes: 09/28/18 10:34 Rounds: Chart reviewed and patient interviewed. Patient says he does not want to talk. Patient is being evaluated for an acute psychosis. Patient's lab studies were positive for amphetamines and otherwise unremarkable. Vital signs are all essentially normal. Patient appears to be medically stable for transfer or discharge. Felice Benites MD
--- NOTE | 2018-09-28 11:37 | PSYCHOLOGICAL NOTE ---
Psych Note - Psych Note Date seen by psych provider: 09/28/18 Time seen by psych provider: 07:45 Psych Note: Reason for Consult: IVC Presenting Problem: IVC via MCM, SI statements, pacing, talking to himself, noted Hx of A/V Hallucinations and was aggressive towards LE. He was uncooperative with changing clothes and said he did not want to talk with anyone. He was physically restrained and administered Haldol 5MG last night at 2151. Today he was in bed covered from head to toe with his sheet. He did remove sheet from head/face, turned head from side to side, mumbled to self, covered head/face back up with sheet and said "I can't think straight sorry." Still arnold ting on UDS. Home medications were listed as Geodon 80MG QHS PRN, Zoloft 100MG QD, Remeron 60MG QHS PRN and Tegretol 600MG QHS PRN. Check in conducted with patient: Patient disclosed that he knows that he was "bad" when he arrived to [facility] stating "I was yelling and stuff." He reports he did not want to come here because he knew he would not be able to leave. He reports "I think I was brought here because I said I was going to kill myself I think." He reports that he is never been inpatient psychiatric treatment before but does have diagnosis of bipolar, PTSD, and schizophrenia. He reports he is supposed be taking medications however is unsure exactly what the doses are in the names. He confirms that he does have a substance abuse history however states that it is only marijuana in the past denies any current. He states he was living with his girlfriend however is thinking about moving in with a friend instead. He reports he has no concerns at this time. Diagnosis: Substance abuse; methamphetamine PTSD per history provided by patient schizoaffective bipolar type per history provided by patient Medication recommendations made by the psychiatric medical provider, Dr. Allie MD., includes: Continue home medication of Tegretol 500MG twice a day Impression/Plan: Patient is recommended for rescind of IVC and is cleared from acute psychiatric services. Patient was under the influence of methamphetamine upon arrival. Patient is no longer under the influence or demonstrating behaviors of responding to internal stimuli i.e. organized linear thought process, maintains eye contact, normal conversational speech. Patient denies thoughts of wanting to harm himself or others. Patient does have psychiatric history however denies having any current outpatient mental health services. Patient is encouraged to follow through with outpatient mental health services and has been provided resource list of area providers including mobile crisis contact information. Patient is highly encouraged to abstain from illegal substance use and was provided resources for sobriety. Dr. Espinoza was consulted to care management of this patient; attending physicians in agreement with recommendations and disposition per
== END 2018-09-28 12:06 | disposition home or self-care (01) ==
LOC: ER 20:53
DX: R45.851 Suicidal ideations (principal); F19.10 Other psychoactive substance abuse, uncomplicated; F17.200 Nicotine dependence, unspecified, uncomplicated
CPT/HCPCS: 93005; 99285; 36415; 80307 ×4; 85025; 80053; 81001; 93010; J3490 ×3

== ENCOUNTER 2019-05-10 00:52 | Emergency (ER) | payer OTHER ==
[2019-05-10 01:54] LABS: ABSOLUTE LYMPHOCYTES (AUTO) 1.5 10^3/uL (0.5-4.7); ABSOLUTE MONOCYTES (AUTO) 0.9 10^3/uL (0.1-1.4); ABSOLUTE NEUT (AUTO) 5.1 10^3/uL (1.7-8.2); BASOPHILS % (AUTO) 0.5 % (0-2); EOSINOPHILS % (AUTO) 0.5 % (0-6); HEMATOCRIT 44.3 % (37.9-51.0); HEMOGLOBIN 15.4 g/dL (13.5-17.0); LYMPHOCYTES % (AUTO) 20.3 % (13-45); MEAN CORPUSCULAR HEMOGLOBIN 29.5 pg (27.0-33.4); MEAN CORPUSCULAR HGB CONC 34.8 g/dL (32.0-36.0); MEAN CORPUSCULAR VOLUME 85 fl (80-97); MONOCYTES % (AUTO) 11.7 % (3-13); PLATELET COUNT 194 10^3/uL (150-450); RED BLOOD COUNT 5.23 10^6/uL (4.35-5.55); RED CELL DISTRIBUTION WIDTH 13.4 % (11.5-14.0); TOTAL CELLS COUNTED % (AUTO) 100 %; WHITE BLOOD COUNT 7.6 10^3/uL (4.0-10.5)
[2019-05-10 02:03] LABS: ALBUMIN 4.6 g/dL (3.5-5.0); ALKALINE PHOSPHATASE 38 U/L (38-126); ANION GAP 8 (5-19); ASPARTATE AMINO TRANSFERASE 31 U/L (17-59); BILIRUBIN,DIRECT 0.1 mg/dL (0.0-0.4); BILIRUBIN,TOTAL 1.3 mg/dL (0.2-1.3); BLOOD UREA NITROGEN 16 mg/dL (7-20); CALCIUM 9.9 mg/dL (8.4-10.2); CARBON DIOXIDE 32 mmol/L (22-30); CHLORIDE 98 mmol/L (98-107); GLUCOSE 119 mg/dL (75-110); POTASSIUM 4.2 mmol/L (3.6-5.0); TOTAL PROTEIN 7.9 g/dL (6.3-8.2)
[2019-05-10 02:04] LABS: ACETAMINOPHEN < 10 ug/mL (10-30); ALCOHOL < 10 mg/dL (NONE DETECTED); SALICYLATE < 1.0 mg/dL (2.0-20.0)
--- NOTE | 2019-05-10 02:40 | ER Document Report ---
ED General - General Chief Complaint: Psych Problem Stated Complaint: IVC Time Seen by Provider: 05/10/19 01:39 TRAVEL OUTSIDE OF THE U.[place]. IN LAST 30 DAYS: No - HPI Notes: This is a 29-year-old male sent here from [facility] under IVC petition. Patient has a longstanding history of schizoaffective disorder bipolar type as well as past history of substance abuse. He apparently showed up at the crisis center acutely agitated and hallucinating and was kicking the door and behaving in a violent fashion. He was petitioned and transported here. When he arrived here nurses indicate that he was obviously hallucinating responding to internal stimuli. By the time I saw him he was very calm and actually sleeping without receiving any medications in the emergency department. When I tried to interview him he said he would prefer not to talk canal and rolled over to the other side. He was somewhat uncooperative and would not allow detailed examination at this time. - Related Data Allergies/Adverse Reactions: No Known Allergies Allergy (Verified 12/02/16 15:30) Past Medical History - General Information source: Patient, [facility] Records - Social History Smoking Status: Current Every Day Smoker Drug Abuse: Cocaine, Heroin, Marijuana, Methamphetamine, Other Family History: Reviewed & Not Pertinent, COPD Patient has suicidal ideation: No Patient has homicidal ideation: No Pulmonary Medical History: Reports: Hx Bronchitis Renal/ Medical History: Denies: Hx Peritoneal Dialysis Psychiatric Medical History: Reports: Hx Bipolar Disorder, Hx Schizoaffective Disorder - Immunizations Hx Diphtheria, Pertussis, Tetanus Vaccination: Yes Review of Systems - Review of Systems -: Yes ROS unobtainable due to patient's medical condition Physical Exam - Vital signs Vitals: Temp Pulse Resp BP Pulse Ox 98.1 F 107 H 18 168/102 H 98 05/10/19 01:40 05/10/19 01:40 05/10/19 01:40 05/10/19 01:40 05/10/19 01:40 - Notes Notes: GENERAL: Well-developed well-nourished male approximately stated age who is sleeping and resisting exam. He is arousable but immediately turns to the opposite side and does not want to cooperate. SKIN: Good turgor no rashes. Mildly diaphoretic. HEAD: Normocephalic atraumatic. EYES: PERRLA. EOMI. Conjunctivae and sclerae clear. NOSE: CLEAR. MOUTH: Moist mucosa. Good dentition. No stridor or edema. No drooling. NECK: Supple. No masses or thyromegaly. BACK: Symmetrical without tenderness. CHEST: Respirations unlabored. Breath sounds clear and symmetrical. HEART: Regular rhythm. No murmur gallop or rub. ABDOMEN: Soft nontender without masses, organomegaly or rebound. Bowel sounds normally active. GENITALIA: Deferred. EXTREMITIES: No edema. No calf tenderness. Cap refill less than 1.5 seconds. Dorsalis pedis and posterior tibial pulses 3+ and symmetrical. NEUROLOGICAL: Patient is moving all 4 extremities spontaneously. He will momentarily open eyes to verbal stimuli. He will not cooperate to determine his orientation. He will follow commands to raise his arms. PSYCHIATRIC: Uncooperative Course - Re-evaluation Re-evalutation: 05/10/19 05:45 Psychiatry consultation has been requested - Vital Signs Vital signs: Temp Pulse Resp BP Pulse Ox 98.1 F 107 H 18 168/102 H 98 05/10/19 01:40 05/10/19 01:40 05/10/19 01:40 05/10/19 01:40 05/10/19 01:40 - Laboratory Result Diagrams: 05/10/19 01:20 05/10/19 01:20 Laboratory results interpreted by me: 05/10/19 05/10/19 01:20 01:20 Carbon Dioxide 32 H Glucose 119 H Creatine Kinase 418 H Salicylates < 1.0 L Acetaminophen < 10 L Discharge - Discharge Clinical Impression: Acute psychosis Disposition: PSYCH HOSP/UNIT
--- NOTE | 2019-05-10 07:50 | EKG REPORT ---
SEVERITY:- OTHERWISE NORMAL ECG - SINUS RHYTHM BORDERLINE RIGHT AXIS DEVIATION ST ELEV, PROBABLE NORMAL EARLY REPOL PATTERN : Confirmed by: Jean-Pierre Roberto MD 10-May-2019 07:50:05
[2019-05-10 08:19] LABS: APPEARANCE,URINE SLIGHTLY-CLOUDY; BILIRUBIN,URINE NEGATIVE (NEGATIVE); COLOR,URINE YELLOW; GLUCOSE, URINE NEGATIVE (NEGATIVE); KETONES,URINE 20 mg/dL (NEGATIVE); LEUKOCYTE ESTERASE,URINE MODERATE (NEGATIVE); NITRITE,URINE NEGATIVE (NEGATIVE); PROTEIN,URINE 30 mg/dL (NEGATIVE); URINE SPECIFIC GRAVITY 1.026; UROBILINOGEN,URINE NEGATIVE mg/dL (<2.0)
[2019-05-10 08:31] LABS: URINE BARBITURATES SCREEN NEGATIVE; URINE BENZODIAZEPINES SCREEN NEGATIVE; URINE COCAINE SCREEN NEGATIVE; URINE MARIJUANA (THC) SCREEN NEGATIVE; URINE METHADONE SCREEN NEGATIVE; URINE PHENCYCLIDINE SCREEN NEGATIVE
[2019-05-10] MEDS ORDERED: CHLORPROMAZINE HCL 50 MG TABLET PO ONE (11:59)
[2019-05-10] MEDS ORDERED: BENZTROPINE MESYLATE 1 MG TABLET PO PRN (11:59)
[2019-05-10] MEDS ORDERED: CHLORPROMAZINE HCL 50 MG TABLET PO PRN ×2 (12:00→14:54)
[2019-05-10] MEDS ORDERED: CHLORPROMAZINE HCL INJ 25 MG/1 ML AMPULE IM ONE (12:15)
--- NOTE | 2019-05-10 14:34 | ER Document Report ---
Doctor's Note Notes: 05/10/19 14:33 Patient's vital signs and previous labs, diagnostic images reviewed. Reviewed mental health notes, nurse's notes and previous providers notes. VSS. Pt is in no distress at this time. Denies any SI or HI. Patient tested positive for cocaine, methamphetamines, methadone, Suboxone, marijuana, psychogenic's. Continue evaluation General: A&Ox3. Answers questions appropriately. Heart: RRR Lungs: CTAB Psych: Flat affect A/P: Continue monitoring and rec's per MH. Normal diet Consider placement for [facility] to [place] for substance abuse
--- NOTE | 2019-05-10 15:54 | ER Document Report ---
Doctor's Note Notes: 05/10/19 15:52 29-year-old male who was brought in as an involuntary commitment from [facility] last night as he was quite agitated and destroying property while intoxicated on a variety of substances. Currently patient has no complaints aside from stating he feels sleepy from the medications that we gave him. Patient initially tells me that he does not feel safe going home but then tells me he wants to go home and then tells me he might be too tired to walk because of the Thorazine that he received around noon. Patient is now open to the possibility of going back to [facility] to continue with help with drug rehab. GENERAL: Sleeping, awakens with jostling his shoulder. HEAD: Normocephalic, atraumatic EYES: Pupils equal, round and reactive to light, extraocular movements intact. ENT: Oral mucosa moist, tongue midline. NECK: Full range of motion, supple, trachea midline. LUNGS: no respiratory distress. EXTREMITIES: Moves all 4 extremities spontaneously, no edema. No cyanosis. NEUROLOGICAL: Alert and oriented x3, normal speech. PSYCH: Normal mood, normal affect. SKIN: Warm, Dry, normal turgor, no rashes or lesions noted. I have rescinded the patient's IVC paperwork. Patient will be discharged and our behavioral health team will facilitate his desire to go to a rehab facility including the possibility of [facility].
[2019-05-10 17:04] VITALS: BP 110/65
--- NOTE | 2019-05-10 20:52 | PSYCHOLOGICAL NOTE ---
Psych Note - Psych Note Date seen by psych provider: 05/10/19 Time seen by psych provider: 07:55 Psych Note: Patient is a 29-year-old male who presents to ED via [facility] after he engaged in aggressive behavior at [facility]. Patient has history with behavioral health. Patient's urine drug screen was positive for opioids and amphetamines. Patient reports "I did not ask to be here." Patient requested discharge patient states last substance use was "a couple of days ago." Patient states he was provided with "a rig and needle" of an unknown substance. Patient became irritable as clinician conducted evaluation. Clinician asked patient about a history of auditory visual hallucinations, patient refused to answer and replied "I know why you are asking that and I am not going to answer." Patient states "you are making me mad with all these questions." Patient would not engage with clinician. Patient reattempted evaluation. Clinician heard patient's room on 3 occasions. Clinician notes patient was laying on the bed attempting to keep his eyes clos ed. Patient became agitated when clinician confronted him regarding pretending to be asleep after patient was observed to be wide-awake immediately prior to clinician entering the room. Patient referred to clinician as "dumb bitch." Clinician remarked that patient was here for treatment and part of the patient's responsibility and receiving treatment is answering clinician's clinically appropriate questions. Patient continued to curse and insult clinician. Clinician stated that the patient is the one in the bed and clinician is the one trying to help. Patient responded, oh, you wanna be in this bed?" Clinician responded, "is that a threat?" Patient denied that was a threat to clinician. Patient states I am trying to keep my blood pressure low and get upset. Clinician restated that clinically appropriate questions were part of the treatment process identify patient's needs. Patient requested clinician leave the room. Clinician spoke with Alyssa at [facility] who reported patient's urine drug screen was positive for cocaine, methamphetamines, amphetamines, marijuana, methadone, Subutex, and LSD. Alyssa described patient as emotionally labile. Shirlene states patient engaged in big aggressive behaviors such as kicking the door and windows and appeared to be interacting with auditory and visual hallucinations. Clinician spoke with patient's licensed loan officer assistant (Mr. Morejon [phone]) and made licensed loan officer assistant aware of patient's behavior at this ED and at [facility]. water resources technical officer stated patient arrived at [facility] requesting help for substance abuse. water resources technical officer stated he was aware of patient's mental health concerns. Clinician provided correctional officer captain of examples in which patient engaged in organized linear thought processes. water resources technical officer states he will follow-up with patient this evening. Patient is alert and oriented to person, place, time and circumstance. Mood is irritable with congruent affect. Patient denies suicidal and homicidal leanna ations. Delusions are absent and behavior is congruent with an intact reality based presentation (i.e., organized and linear through processes). Patient is able to engage in organized, rational thought processes. Patient was able to express his uncomfortableness with clinicians clinically appropriate questions. Was able to articulate and verbalize when he was becoming emotionally distressed. Patient is able to express needs and wants in a logical manner. Eye contact is fair. Conversational speech is within normal rate, tone, and prosody. Intellectual ability appears to be within average range. Attention and concentration are good. Insight, judgment and impulse control are currently poor. Impression/Plan: Patient is recommended for rescind of 24-hour petition for evaluation and is cleared from acute psychiatric services. Patient denies suicidal and homicidal ideations. There is no observed behavior that suggests patient is responding to internal stimuli. Patient was able to verbalize when he was becoming emotionally distressed. Patient was able to express insight into the nature and consequences of his answers to clinician's questions. Patient's current presentation and behavior can be best explained by the interaction of the effects of the multiple substances in patient's system (stimulants, depressants, hallucinogens). Patient voluntarily elected to walk- in to [facility] to reattempt substance abuse treatment. Alyssa at [facility] was contacted regarding patient's plan; stated that it was up to the medical doc for acceptance. Patient was advised of this and responsibility to engage appropriately with staff at [facility]. Patient's correctional officer captain was contacted and stated he would follow-up with patient at [facility]. Dr. Espinoza was consulted on the care and management of this patient; attending physician is in agreement with recommendations and disposition.
[2019-05-11] MEDS ORDERED: BENZTROPINE MESYLATE 1 MG TABLET PO SCH (10:00)
== END 2019-05-10 17:00 | disposition home or self-care (01) ==
LOC: ER 00:52
DX: F23 Brief psychotic disorder (principal); R45.6 Violent behavior; F14.10 Cocaine abuse, uncomplicated; F11.10 Opioid abuse, uncomplicated; F12.10 Cannabis abuse, uncomplicated; F15.10 Other stimulant abuse, uncomplicated; F17.200 Nicotine dependence, unspecified, uncomplicated
CPT/HCPCS: 93005; 99284; 36415; 80307 ×4; 82550; 85025; 80053; 81001; 93010; J3490

== ENCOUNTER 2019-05-13 00:09 | Inpatient (IN) | payer OTHER ==
[2019-05-13] MEDS ORDERED: LORAZEPAM INJ 2 MG/1 ML VIAL IV ONE (00:25)
[2019-05-13 00:32] LABS: ABSOLUTE MONOCYTES (AUTO) 0.6 10^3/uL (0.1-1.4); MEAN CORPUSCULAR VOLUME 84 fl (80-97); TOTAL CELLS COUNTED % (AUTO) 100 %
[2019-05-13 00:38] LABS: ABSOLUTE NEUT (AUTO) 3.7 10^3/uL (1.7-8.2); BASOPHILS % (AUTO) 0.6 % (0-2); EOSINOPHILS % (AUTO) 0.6 % (0-6); HEMATOCRIT 44.8 % (37.9-51.0); HEMOGLOBIN 15.3 g/dL (13.5-17.0); LYMPHOCYTES % (AUTO) 30.7 % (13-45); MEAN CORPUSCULAR HEMOGLOBIN 28.8 pg (27.0-33.4); MEAN CORPUSCULAR HGB CONC 34.1 g/dL (32.0-36.0); MONOCYTES % (AUTO) 9.5 % (3-13); PLATELET COUNT 223 10^3/uL (150-450); RED CELL DISTRIBUTION WIDTH 13.6 % (11.5-14.0); SEGMENTED NEUTROPHILS % (AUTO) 58.6 % (42-78); WHITE BLOOD COUNT 6.4 10^3/uL (4.0-10.5)
[2019-05-13] MEDS: NORMAL SALINE 1000 ML 1,000 ML IV PRN ×3 (00:46→19:04)
[2019-05-13] MEDS ORDERED: LIDOCAINE 2%/EPINEPHRINE INJ 20 ML VIAL INJ ONE (00:47)
[2019-05-13] MEDS ORDERED: DIPH/PERTUSS(ACELL)/TETANUS VAC/PF 0.5 ML SYR (>=10YO) IM ONE (00:50)
[2019-05-13 00:51] LABS: ALBUMIN 4.3 g/dL (3.5-5.0); ALKALINE PHOSPHATASE 44 U/L (38-126); ANION GAP 11 (5-19); ASPARTATE AMINO TRANSFERASE 23 U/L (17-59); BILIRUBIN,DIRECT 0.3 mg/dL (0.0-0.4); BILIRUBIN,TOTAL 0.8 mg/dL (0.2-1.3); BLOOD UREA NITROGEN 11 mg/dL (7-20); CALCIUM 9.5 mg/dL (8.4-10.2); CARBON DIOXIDE 29 mmol/L (22-30); CHLORIDE 100 mmol/L (98-107); GLUCOSE 91 mg/dL (75-110); POTASSIUM 3.5 mmol/L (3.6-5.0); TOTAL PROTEIN 7.8 g/dL (6.3-8.2)
[2019-05-13 00:53] LABS: ACETAMINOPHEN < 10 ug/mL (10-30); ALCOHOL < 10 mg/dL (NONE DETECTED); SALICYLATE < 1.0 mg/dL (2.0-20.0)
[2019-05-13 01:12] LABS: APPEARANCE,URINE CLEAR; BILIRUBIN,URINE NEGATIVE (NEGATIVE); COLOR,URINE YELLOW; GLUCOSE, URINE NEGATIVE (NEGATIVE); KETONES,URINE NEGATIVE (NEGATIVE); LEUKOCYTE ESTERASE,URINE NEGATIVE (NEGATIVE); NITRITE,URINE NEGATIVE (NEGATIVE); PROTEIN,URINE NEGATIVE (NEGATIVE); URINE SPECIFIC GRAVITY 1.006; UROBILINOGEN,URINE NEGATIVE mg/dL (<2.0)
[2019-05-13 02:18] LABS: URINE AMPHETAMINES SCREEN UNCONFIRMED POSITIVE; URINE BARBITURATES SCREEN NEGATIVE; URINE BENZODIAZEPINES SCREEN NEGATIVE; URINE COCAINE SCREEN NEGATIVE; URINE MARIJUANA (THC) SCREEN NEGATIVE; URINE METHADONE SCREEN NEGATIVE; URINE PHENCYCLIDINE SCREEN NEGATIVE
--- NOTE | 2019-05-13 03:11 | ER Document Report ---
Entered by LUCIE SÁNCHEZ SCRIBE 05/13/19 0024 Acting as scribe for:CHAUNCEY JAVED IV, MD ED Psych Disorder / Suicide - General Mode of Arrival: Medic Information source: Emergency Med Personnel TRAVEL OUTSIDE OF THE [place] IN LAST 30 DAYS: No <CHAUNCEY JAVED IV - Last Filed: 05/13/19 05:40> <JOSE PONCE - Last Filed: 05/13/19 08:42> - General Chief Complaint: Overdose Stated Complaint: PSYCH Time Seen by Provider: 05/13/19 00:20 Notes: This 29 year old male patient with a history of IV drug use brought in by EMS presents to the ED today with complaints of an overdose and suicidal ideation that occurred prior to arrival per the ED nurse. ED nurse states that the patient ingested approximately x50-80 25 mg benadryl tablets. ED nurse reports that the patient was discharged from [facility] x1 day ago after a 72 hour hold and that the patient is x3 months clean. (CHAUNCEY JAVED IV) - Related Data Allergies/Adverse Reactions: No Known Allergies Allergy (Verified 12/02/16 15:30) Past Medical History - General Information source: [facility] Records - Social History Smoking Status: Unknown if Ever Smoked Cigarette use (# per day): No Chew tobacco use (# tins/day): No Smoking Education Provided: No Drug Abuse: Other - IV drug use Family History: Reviewed & Not Pertinent, COPD Patient has suicidal ideation: Yes Patient has homicidal ideation: No Pulmonary Medical History: Reports: Hx Bronchitis Psychiatric Medical History: Reports: Hx Bipolar Disorder, Hx Schizoaffective Disorder - Immunizations Hx Diphtheria, Pertussis, Tetanus Vaccination: Yes <CHAUNCEY JAVED IV - Last Filed: 05/13/19 05:40> Review of Systems - Review of Systems -: Yes ROS unobtainable due to patient's medical condition - Overdose; ~50-80 25 mg Benadryl tablets <CHAUNCEY JAVED IV - Last Filed: 05/13/19 05:40> Physical Exam - General General appearance: Other - Patient is nonverbal at this time. - HEENT Head: Normocephalic, Atraumatic Eyes: Normal Pupils: Dilated - Respiratory Respiratory status: No respiratory distress Chest status: Nontender Breath sounds: Normal Chest palpation: Normal - Cardiovascular Rhythm: Regular Heart sounds: Normal auscultation Murmur: No - Abdominal Inspection: Normal Distension: No distension Bowel sounds: Normal Tenderness: Nontender Organomegaly: No organomegaly - Back Back: Normal, Nontender - Extremities General upper extremity: Normal inspection General lower extremity: Normal inspection Wrist: Laceration - x3 linear superficial lacerations on the anterior aspect of the distal forearm bilaterally. Each laceration is approximately 8 cm in length. - Neurological Neuro grossly intact: Yes - Psychological Associated symptoms: Other - Nonverbal - Skin Skin Temperature: Warm Skin Moisture: Dry Skin Color: Normal <CHAUNCEY JAVED IV - Last Filed: 05/13/19 05:40> - Vital signs Vitals: Resp Pulse Ox 16 98 05/13/19 00:22 05/13/19 00:22 Course - Laboratory Result Diagrams: 05/13/19 00:22 05/13/19 00:22 <CHAUNCEY JAVED IV - Last Filed: 05/13/19 05:40> - Laboratory Result Diagrams: 05/13/19 00:22 05/13/19 00:22 <JOSE PONCE - Last Filed: 05/13/19 08:42> - Vital Signs Vital signs: Temp Pulse Resp BP Pulse Ox 99.0 F 23 H 129/76 H 98 05/13/19 07:01 05/13/19 08:01 05/13/19 08:01 05/13/19 08:01 - Laboratory Laboratory results interpreted by me: 05/13/19 00:22 Potassium 3.5 L Salicylates < 1.0 L Acetaminophen < 10 L - EKG Interpretation by Me Additional EKG results interpreted by nv: 05/13/19 05:40 EKG obtained on 05/13/2019 at 00 22 hours was interpreted by this MD. Findings: Sinus tachycardia, rate 108, normal axis, P waves preceding QRS complexes, QRS complexes appeared narrow. There are no obvious patterns of ST segment elevation or depression present to suggest acute myocardial ischemia or infarction. Impression sinus tachycardia with nonspecific ST segments. (CHAUNCEY LOPEZ IV) Procedures - Laceration/Wound Repair Left Anterior Arm Time completed: 03:00 - left anterior forearm Wound's Depth, Shape: Superficial, Linear Laceration pre-procedure: Sterile PPE donned, Chloraprep applied Anesthetic type: 2% Lidocaine Volume Anesthetic (mLs): 5 Wound explored: Clean Wound Repaired With: Sutures Suture Size/Type: 4:0, Prolene Number of Sutures: 21 Layer Closure?: No Post-procedure wound care: Sterile dressing applied Post-procedure NV exam normal: Yes Complications: No <CHAUNCEY JAVED IV - Last Filed: 05/13/19 05:40> Discharge <CHAUNCEY JAVED IV - Last Filed: 05/13/19 05:40> - Discharge Admitting Provider: Jostin (Hospitalist) Unit Admitted: Telemetry <JOSE PONCE - Last Filed: 05/13/19 08:42> - Discharge Clinical Impression: Self-inflicted injury Intentional drug overdose Qualifiers: Encounter type: initial encounter Qualified Code(s): T50.902A - Poisoning by unspecified drugs, medicaments and biological substances, intentional self-harm, initial encounter Condition: Fair Disposition: ADMITTED OBSERVATION I personally performed the services described in the documentation, reviewed and edited the documentation which was dictated to the scribe in my presence, and it accurately records my words and actions.
--- NOTE | 2019-05-13 08:08 | EKG REPORT ---
SEVERITY:- BORDERLINE ECG - SINUS TACHYCARDIA BORDERLINE RIGHT AXIS DEVIATION BORDERLINE T WAVE ABNORMALITIES : Confirmed by: Jean-Pierre Roberto MD 13-May-2019 08:07:19
--- NOTE | 2019-05-13 08:39 | ER Document Report ---
Doctor's Note Notes: 05/13/19 08:38 Report was received on the patient. A 29-year-old male brought to the emergency department for Benadryl overdose with suicidal ideation. Made several superficial cuts on his wrists that were repaired by the off going shift. Patient reportedly took 50 to 80 tablets of 25 mg Benadryl. At the time of my evaluation patient heart rate ranges between 90 and 105. He has rapid eye movements. He is in soft restraints. He is still nonverbal and not oriented. discussed with attending Dr. Dupree. We have spoken with poison control and they indicate that patient will need observation, there is not a definitive timeframe on when patient will be oriented again. He will likely need admission, will discuss with hospitalist 05/13/19 08:[address] Frankel, hospitalist. Case discussed will admit.
[2019-05-13] MEDS ORDERED: ACETAMINOPHEN 325 MG TABLET PO PRN (09:21)
[2019-05-13] MEDS ORDERED: ACETAMINOPHEN 650 MG SUPP.RECT PR PRN (09:21)
[2019-05-13] MEDS ORDERED: ONDANSETRON HCL INJ/PF 4 MG/2 ML SDV IV PRN (09:21)
[2019-05-13] MEDS ORDERED: LORAZEPAM INJ 2 MG/1 ML VIAL IV PRN (09:39)
--- NOTE | 2019-05-13 10:07 | PSYCHOLOGICAL NOTE ---
Psych Note - Psych Note Date seen by psych provider: 05/13/19 Time seen by psych provider: 08:15 Psych Note: Reason for Consult: Overdose on Benadryl and Self Harm Patient [facility] after reportedly taking 50-80 25mg Benadryl tablets. He is noted to have lacerations to both wrists. He is actively responding to internal stimuli as evidenced by looking around the room, staring at times at spots in the room, attempting to touch or grab at the air, extreme psychomotor agitation and grunting (he is currently non-verbal). Chart review: Patient was evaluated on 05/10/2019 for concerns of aggressive behavior at [facility]. Patient's bomb squad officer (Mr. Morejon [phone]) stated patient arrived at [facility] requesting help for substance abuse so voluntarilalyy when to [facility]. Per [facility], upon arrival to their facility, his drug screen was positive for cocaine, methamphetamines, amphetamines, marijuana, methadone, Subutex, and LSD. During [facility] ED evaluation, the patient denies suicidal and homicidal ideations. There is no observed behavior that suggests patient is responding to internal stimuli. Patient was able to verbalize when he was becoming emotionally distressed. Patient was able to express insight into the nature and consequences of his answers to clinician's questions. Patient's current presentation and behavior can be best explained by the interaction of the effects of the multiple substances in patient's system (stimulants, depressants, hallucinogens). Patient voluntarily elected to walk-in to [facility] to reattempt substance abuse treatment. [facility] was contacted regarding patient's plan; stated that it was up to the medical doc for acceptance. Patient was advised of this and responsibility to engage appropriately with staff at [facility]. Patient's human resource officer was contacted and stated he would follow-up with patient at [facility]. Impression/Plan: Patient is recommended for IVC. Patient presented after overdose on Benadryl and engaging of self harm (cut on wrist). He is currently responding to internal stimuli (visual/auditory hallucinations) and unable to engage with clinician. Patient has been medically admitted. Patient will be re- evaluated. Dr. Espinoza was consulted on the care and management of this patient; attending physician is in agreement with recommendations and disposition.
[2019-05-13] MEDS ORDERED: POTASSIUM CHLORIDE 10 MEQ TABLET.ER PO ONE (10:17)
--- NOTE | 2019-05-13 10:31 | PDOC H&P ---
History of Present Illness Admission Date/PCP: 05/13/19 09:31 Patient complains of: Benadryl overdose with positive screen for amphetamines and history of polysubstance abuse History of Present Illness: JOHN THAPA is a 29 year old male who was discharged from the [facility] yesterday and was sent from [facility] to the emergency department on May 10 for agitation prese nts after a Benadryl overdose. The belief is that he took somewhere between 50 and 80 of the 25 mg capsules. In addition he attempted to cut his wrists. He is currently in restraints and extremely jittery and hyperactive. He was referred to the hospital service for admission. Psychiatry is seen the patient and he is on involuntary commitment. Past Medical History Past Medical History: Patient unable to provide information. Information from old records. Pulmonary Medical History: Reports: Bronchitis Psychiatric Medical History: Reports: Bipolar Disorder, Schizoaffective Disorder, Substance Abuse Past Surgical History Past Surgical History: Unable to obtain from the patient but no past surgical history is suspected. Past Surgical History: Reports: Other - Unable to obtain history from patient Social History Information Source: COUNT INCLUDES [facility] Records Lives with: Other - Unknown Smoking Status: Unknown if Ever Smoked Frequency of Alcohol Use: None - Unknown Hx Recreational Drug Use: Yes Drugs: Cocaine, Heroin, Marijuana, Other - Amphetamine and opiate Hx Prescription Drug Abuse: No - Possibly but cannot be confirmed at this time - Advance Directive Resuscitation Status: Full Code Family History Family History: COPD Family History: Patient is unable to give family history due to his mental state Parental Family History Reviewed: No - Unable to obtain due to mental status Children Family History Reviewed: No - Unable to obtain Sibling(s) Family History Reviewed.: No - Unable to obtain Medication/Allergy Home Medications: No Home Medications 05/13/19 Allergies/Adverse Reactions: No Known Allergies Allergy (Verified 05/13/19 15:55) Review of Systems ROS unobtainable: Due to mental status Physical Exam Vital Signs: Temp Pulse Resp BP Pulse Ox 98.5 F 91 22 H 121/82 97 05/13/19 10:12 05/13/19 10:12 05/13/19 10:12 05/13/19 10:12 05/13/19 10:12 Intake & Output 05/12/19 05/13/19 05/14/19 06:59 06:59 06:59 Intake Total 2000 Output Total 450 Balance 2000 -450 Weight 68.039 kg 87.2 kg General appearance: PRESENT: severe distress - Extremely hyperactive/manic, well-developed. ABSENT: cooperative Exam: Physical exam is limited due to patient's manic/delirious behavior Head exam: PRESENT: atraumatic, normocephalic Eye exam: PRESENT: conjunctiva pink. ABSENT: scleral icterus Ear exam: PRESENT: normal external ear exam. ABSENT: bleeding, drainage Mouth exam: PRESENT: moist, tongue midline Respiratory exam: PRESENT: clear to auscultation shila, symmetrical, tachypnea. ABSENT: rales, rhonchi, wheezes Cardiovascular exam: PRESENT: RRR, +S1, +S2, tachycardia GI/Abdominal exam: PRESENT: normal bowel sounds, soft. ABSENT: distended, tenderness Rectal exam: PRESENT: deferred Gentrourinary exam: ABSENT: indwelling catheter Extremities exam: PRESENT: other - Laceration on the right wrist. ABSENT: joint swelling, pedal edema Musculoskeletal exam: PRESENT: normal inspection Neurological exam: PRESENT: alert, awake Psychiatric exam: PRESENT: manic, unusual affect, other - Unable to fully assess due to patient's mental state Focused psych exam: PRESENT: delusional, pressured speech, psychomotor agitation, other - Unable to fully assess due to patient's mental state Skin exam: PRESENT: dry, normal color, warm, other - Laceration dorsum of right wrist/forearm. ABSENT: rash Results Laboratory Results: 05/13/19 00:22 05/13/19 00:22 05/13/19 05/13/19 05/13/19 00:22 00:22 01:03 WBC 6.4 RBC 5.30 Hgb 15.3 Hct 44.8 MCV 84 MCH 28.8 MCHC 34.1 RDW 13.6 Plt Count 223 Seg Neutrophils % 58.6 Sodium 140.0 Potassium 3.5 L Chloride 100 Carbon Dioxide 29 Anion Gap 11 BUN 11 Creatinine 1.00 Est GFR ( Amer) > 60 Glucose 91 Calcium 9.5 Total Bilirubin 0.8 AST 23 Alkaline Phosphatase 44 Total Protein 7.8 Albumin 4.3 Urine Color YELLOW Urine Appearance CLEAR Urine pH 6.0 Ur Specific [place] 1.006 Urine Protein NEGATIVE Urine Glucose (UA) NEGATIVE Urine Ketones NEGATIVE Urine Blood NEGATIVE Urine Nitrite NEGATIVE Ur Leukocyte Esterase NEGATIVE Urine WBC (Auto) 1 Urine RBC (Auto) 0 Assessment and Plan - Diagnosis (1) Diphenhydramine overdose Qualifiers: Encounter type: initial encounter Injury intent: intentional self-harm Qualified Code(s): T45.0X2A - Poisoning by antiallergic and antiemetic drugs, intentional self-harm, initial encounter Is this a current diagnosis for this admission?: Yes Plan: Per her poison control the patient will be monitored until his altered mental status clears (2) Suicidal ideation Is this a current diagnosis for this admission?: Yes Plan: This is not the first hospitalization for this patient. He has a strong history of polysubstance abuse. He was just a patient at the [facility] the day prior to admission. It is unclear if he was discharged or left AGAINST MEDICAL ADVICE. (3) Laceration of right wrist Qualifiers: Encounter type: initial encounter Qualified Code(s): S61.511A - Laceration without foreign body of right wrist, initial encounter Is this a current diagnosis for this admission?: Yes Plan: Part of his attempted suicide. The lesion was sutured by the emergency department physician. (4) Amphetamine use disorder, severe, dependence Is this a current diagnosis for this admission?: Yes Plan: The patient screen positive for amphetamines. He has a long history of polysubstance abuse including amphetamines, cocaine and heroin (5) Opiate abuse, continuous Is this a current diagnosis for this admission?: Yes Plan: None on this admission but old records indicate use of heroin and possibly other opiates (6) Hypokalemia Is this a current diagnosis for this admission?: Yes Plan: We will supplement with potassium chloride and monitor serum potassium levels (7) Bipolar affective disorder, current episode manic with psychotic symptoms Is this a current diagnosis for this admission?: Yes Plan: Severe mental illness. Although medications are listed in his previous records it is unknown what he is been taking. Pharmacy did reach out to the [facility] facility and they had no clear indication of current medications. Noncompliance with medications as likely a major contributing factor to his recent and current behaviors. I will defer to psychiatry for medication suggestions. (8) Intentional drug overdose Qualifiers: Encounter type: initial encounter Qualified Code(s): T50.902A - Poisoning by unspecified drugs, medicaments and biological substances, intentional self- harm, initial encounter Is this a current diagnosis for this admission?: Yes Plan: It is believed that the patient took somewhere between 50 and 70 of the 25 mg Benadryl capsules. No acute intervention. Will be metabolized normally. He is currently on involuntary commitment by psychiatry. (9) Self-inflicted injury Is this a current diagnosis for this admission?: Yes Plan: Laceration of right wrist. Suture was placed in the emergency department. Continue conservative care. (10) Acute psychosis Is this a current diagnosis for this admission?: Yes Plan: Due to intentional overdose with a strong component of his chronic mental illness. Currently on involuntary commitment. Psychiatry is seeing the patient. (11) Polysubstance dependence including opioid type drug with complication, episodic abuse Is this a current diagnosis for this admission?: Yes Plan: Old records reviewed history of polysubstance abuse including opiates (heroin), cocaine and amphetamines. He clearly failed a stay at the [facility]. Due to his mental illness the patient has been very resistant to treatment. - Plan Summary Summary: 05/13/2019-the patient will be hospitalized. The plan is to let the diphenhydramine overdose wear off. He will still need an active treatment plan for his severe bipolar disorder. He exhibits severely manic behavior at this time. Psychiatry has him on involuntary commitment and I will defer to their medication selection. - Time Time Spent with patient: 35 or more minutes Medications reviewed and adjusted accordingly: Yes Anticipated discharge: Other - Unknown at this time - Inpatient Certification Based on my medical assessment, after consideration of the patient's comorbidities, presenting symptoms, or acuity I expect that the services needed warrant INPATIENT care.: Yes I certify that my determination is in accordance with my understanding of Medicare's requirements for reasonable and necessary INPATIENT services [42 CFR 412.3e].: Yes Medical Necessity: Significant Comorbidiites Make Outpatient Treatment Too Risky, Need Close Monitoring Due to Risk of Patient Decompensation, Risk of Complication if Not Cared For in Hospital, Risk of Diagnosis Which Will Require Inpatient Eval/Care/Monitoring
[2019-05-13] MEDS: LORAZEPAM INJ 2 MG/1 ML VIAL IV SCH ×3 (11:19→23:21)
[2019-05-13] MEDS: FAMOTIDINE INJ/PF 20 MG/2 ML SDV IV SCH ×2 (11:52→22:15)
[2019-05-13] MEDS: ENOXAPARIN SODIUM INJ 40 MG/0.4 ML DISP.SYRIN SUBCUT SCH (11:52)
[2019-05-14 05:16] LABS: ABSOLUTE EOSINOPHILS # (AUTO) 0.1 10^3/uL (0.0-0.6); ABSOLUTE MONOCYTES (AUTO) 0.7 10^3/uL (0.1-1.4); ABSOLUTE NEUT (AUTO) 3.1 10^3/uL (1.7-8.2); BASOPHILS % (AUTO) 0.7 % (0-2); EOSINOPHILS % (AUTO) 1.4 % (0-6); HEMATOCRIT 42.6 % (37.9-51.0); HEMOGLOBIN 14.5 g/dL (13.5-17.0); LYMPHOCYTES % (AUTO) 33.1 % (13-45); MEAN CORPUSCULAR HEMOGLOBIN 29.2 pg (27.0-33.4); MEAN CORPUSCULAR VOLUME 86 fl (80-97); MONOCYTES % (AUTO) 12.1 % (3-13); PLATELET COUNT 165 10^3/uL (150-450); RED BLOOD COUNT 4.95 10^6/uL (4.35-5.55); RED CELL DISTRIBUTION WIDTH 13.6 % (11.5-14.0); SEGMENTED NEUTROPHILS % (AUTO) 52.7 % (42-78); TOTAL CELLS COUNTED % (AUTO) 100 %
[2019-05-14 05:37] LABS: ALBUMIN 3.6 g/dL (3.5-5.0); ALKALINE PHOSPHATASE 33 U/L (38-126); ANION GAP 9 (5-19); ASPARTATE AMINO TRANSFERASE 38 U/L (17-59); BILIRUBIN,DIRECT 0.2 mg/dL (0.0-0.4); BILIRUBIN,TOTAL 0.9 mg/dL (0.2-1.3); BLOOD UREA NITROGEN 9 mg/dL (7-20); CALCIUM 8.8 mg/dL (8.4-10.2); CARBON DIOXIDE 25 mmol/L (22-30); CHLORIDE 106 mmol/L (98-107); GLUCOSE 86 mg/dL (75-110); POTASSIUM 3.9 mmol/L (3.6-5.0); TOTAL PROTEIN 6.8 g/dL (6.3-8.2)
[2019-05-14] MEDS: LORAZEPAM INJ 2 MG/1 ML VIAL IV SCH ×3 (06:12→22:21)
[2019-05-14] MEDS: NORMAL SALINE 1000 ML 1,000 ML IV PRN ×4 (06:12→22:22)
[2019-05-14] MEDS: ENOXAPARIN SODIUM INJ 40 MG/0.4 ML DISP.SYRIN SUBCUT SCH (09:02)
[2019-05-14] MEDS: FAMOTIDINE INJ/PF 20 MG/2 ML SDV IV SCH ×2 (09:02→22:21)
--- NOTE | 2019-05-14 09:12 | PDOC PROGRESS REPORT ---
Subjective Progress Note for:: 05/14/19 Subjective:: The patient is resting in bed. He is much much calmer than yesterday. In fact he is somewhat sleepy. Yesterday he was hypermanic. Reason For Visit: SERIOUS OVERDOSE Bipolar with osvaldo Physical Exam Vital Signs: Temp Pulse Resp BP Pulse Ox 97.7 F 73 18 116/69 100 05/14/19 07:57 05/14/19 07:57 05/14/19 07:57 05/14/19 07:57 05/14/19 07:57 Intake & Output 05/13/19 05/14/19 05/15/19 06:59 06:59 06:59 Intake Total 19990 207 Output Total 0 Balance 1999 Weight 68.039 kg 87.6 kg General appearance: PRESENT: no acute distress, well-developed. ABSENT: cooperative - Still sleepy Head exam: PRESENT: atraumatic, normocephalic Respiratory exam: PRESENT: clear to auscultation shila, symmetrical, unlabored. ABSENT: rales, rhonchi, tachypnea, wheezes Cardiovascular exam: PRESENT: RRR, +S1, +S2. ABSENT: diastolic murmur, systolic murmur GI/Abdominal exam: PRESENT: normal bowel sounds, soft. ABSENT: distended, tenderness Rectal exam: PRESENT: deferred Gentrourinary exam: ABSENT: indwelling catheter Extremities exam: ABSENT: joint swelling, pedal edema Musculoskeletal exam: PRESENT: normal inspection Neurological exam: PRESENT: awake. ABSENT: alert - Sleepy this morning possibly due to medications Psychiatric exam: ABSENT: agitated Focused psych exam: ABSENT: restlessness Skin exam: PRESENT: other - Laceration on wrist clean and dry Results Laboratory Results: 05/14/19 04:45 05/14/19 04:45 05/14/19 05/14/19 04:45 04:45 WBC 6.0 RBC 4.95 Hgb 14.5 Hct 42.6 MCV 86 MCH 29.2 MCHC 34.0 RDW 13.6 Plt Count 165 Seg Neutrophils % 52.7 Sodium 139.5 Potassium 3.9 Chloride 106 Carbon Dioxide 25 Anion Gap 9 BUN 9 Creatinine 0.91 Est GFR ( Amer) > 60 Glucose 86 Calcium 8.8 Magnesium 2.1 Total Bilirubin 0.9 AST 38 Alkaline Phosphatase 33 L Total Protein 6.8 Albumin 3.6 Assessment and Plan - Diagnosis (1) Diphenhydramine overdose Qualifiers: Encounter type: initial encounter Injury intent: intentional self-harm Qualified Code(s): T45.0X2A - Poisoning by antiallergic and antiemetic drugs, intentional self-harm, initial encounter Is this a current diagnosis for this admission?: Yes Plan: Initial effects appear to be wearing off. I am decreasing the scheduled Lorazepam to 1 mg every 8 hours and broadening the as needed dose to 1 mg every 4 hours. He should be able to switch to oral dosing tomorrow. (2) Suicidal ideation Is this a current diagnosis for this admission?: Yes Plan: Not verbalizing suicidal ideation today (3) Laceration of right wrist Qualifiers: Encounter type: initial encounter Qualified Code(s): S61.511A - Laceration without foreign body of right wrist, initial encounter Is this a current diagnosis for this admission?: Yes Plan: We will apply bacitracin ointment and Telfa (4) Amphetamine use disorder, severe, dependence Is this a current diagnosis for this admission?: Yes Plan: Monitor for withdrawal. Taper lorazepam slowly. (5) Opiate abuse, continuous Is this a current diagnosis for this admission?: Yes Plan: Tox screen on this admission was negative for opiates but positive for amphetamines. The patient still needs a substance abuse program. (6) Hypokalemia Is this a current diagnosis for this admission?: Yes Plan: Resolved (7) Bipolar affective disorder, current episode manic with psychotic symptoms Is this a current diagnosis for this admission?: Yes Plan: We cannot confirm if the patient truly has been on medications that are listed in his old records. I will defer to psychiatry for current medication suggestions (8) Intentional drug overdose Qualifiers: Encounter type: initial encounter Qualified Code(s): T50.902A - Poisoning by unspecified drugs, medicaments and biological substances, intentional self- harm, initial encounter Is this a current diagnosis for this admission?: Yes Plan: The patient has a history of drug overdose. We will continue to monitor. (9) Self-inflicted injury Is this a current diagnosis for this admission?: Yes Plan: Lacerations healing (10) Acute psychosis Is this a current diagnosis for this admission?: Yes Plan: Significantly improved today (11) Polysubstance dependence including opioid type drug with complication, episodic abuse Is this a current diagnosis for this admission?: Yes Plan: As noted above this admission the tox screen was positive for amphetamines, heroin, cocaine and LSD as well as marijuana we will try and encourage inpatient detox/rehab - Plan Summary Summary: 05/13/2019-the patient will be hospitalized. The plan is to let the diphenhydramine overdose wear off. He will still need an active treatment plan for his severe bipolar disorder. He exhibits severely manic behavior at this time. Psychiatry has him on involuntary commitment and I will defer to their medication selection. - Time Time Spent with patient: 15-24 minutes Medications reviewed and adjusted accordingly: Yes
[2019-05-14] MEDS ORDERED: LORAZEPAM INJ 2 MG/1 ML VIAL IV PRN (16:23)
--- NOTE | 2019-05-14 18:51 | PSYCHOLOGICAL NOTE ---
Psych Note - Psych Note Date seen by psych provider: 05/14/19 Time seen by psych provider: 18:20 Psych Note: Reason for Consult: Overdose on Benadryl and Self Harm Patient presented to [facility] ED after reportedly taking 50-80 25mg Benadryl tablets. He is noted to have lacerations to both wrists. Patient's friend Tere at bedside. Patient requested to speak to someone from behavioral health, again. Patient requested discharge. Clinician stated he was not medically clear and he was not clear from the behavioral health team. Patient confirmed overdose via Benadryl and stated that he cut his wrists with a razor blade. Patient stated he was not accepted by [facility] when he he attempted to engage in substance abuse treatment on 05/10/2019. As the evaluation progressed, patient became more irritable. Clinician asked about protective factors, and patient became upset and asked clinician to "give me one." Clinician stated that it is not a clinician's place to give you reasons to live. Patient began to curse at and call clinician "a quack." Clinician reminded patient that this type of behavior is not helping his current situation. Patient refused to engage further. Patient's friend, Tere's breast a desire to remain with patient overnight. Clinician states visiting hours are from 8 AM to 8 PM. Clinician states patient is going to "act out" because "he does not like to be alone." Patient demanded Tere verify information clinician provided. Security confirmed visiting hours with patient and friend. Impression/Plan: Patient is recommended for IVC. Patient presented after overdose on Benadryl and engaging of self harm (cut on wrist). He is currently responding to internal stimuli (visual/auditory hallucinations) and unable to engage with clinician. Patient has been medically admitted. Patient will be re- evaluated. Dr. Espinoza was consulted on the care and management of this patient; attending physician is in agreement with recommendations and disposition.
[2019-05-15] MEDS: LORAZEPAM INJ 2 MG/1 ML VIAL IV SCH ×3 (05:11→22:00)
[2019-05-15] MEDS: ENOXAPARIN SODIUM INJ 40 MG/0.4 ML DISP.SYRIN SUBCUT SCH (09:27)
[2019-05-15] MEDS: FAMOTIDINE INJ/PF 20 MG/2 ML SDV IV SCH ×2 (09:27→21:44)
[2019-05-15] MEDS: BACITRACIN ZINC OINTMENT 15 GM TP SCH (09:28)
--- NOTE | 2019-05-15 14:02 | PDOC PROGRESS REPORT ---
Subjective Progress Note for:: 05/15/19 Subjective:: JOHN THAPA is a 29 year old male who was discharged from the [facility] yesterday and was sent from [facility] to the emergency department on May 10 for agitation presents after a Benadryl overdose. The belief is that he took somewhere between 50 and 80 of the 25 mg capsules. In addition he attempted to cut his wrists. He is currently in restraints and extremely jittery and hyperactive. He was referred to the hospital service for admission. Psychiatry is seen the patient and he is on involuntary commitment. 05/15/2019. No acute events overnight. Patient comfortably sitting up in apparent distress, alert and oriented x4, cooperative with physical examination, denies any fever, chills, nausea, vomiting, diarrhea, constipation or any urinary symptoms. Patient very anxious to be discharged home. Reason For Visit: SERIOUS OVERDOSE Physical Exam Vital Signs: Temp Pulse Resp BP Pulse Ox 98.4 F 101 H 18 132/66 H 99 05/15/19 12:05 05/15/19 12:05 05/15/19 12:05 05/15/19 12:05 05/15/19 12:05 Intake & Output 05/14/19 05/15/19 05/16/19 06:59 06:59 06:59 Intake Total 1340 3435 720 Output Total 2200 2300 Balance -860 1135 720 Weight 87.6 kg 88.4 kg General appearance: PRESENT: no acute distress, well-developed, well-nourished Head exam: PRESENT: atraumatic, normocephalic Respiratory exam: PRESENT: clear to auscultation shila. ABSENT: rales, rhonchi, w heezes Cardiovascular exam: PRESENT: RRR. ABSENT: diastolic murmur, rubs, systolic murmur GI/Abdominal exam: PRESENT: normal bowel sounds, soft. ABSENT: distended, guarding, mass, organolmegaly, rebound, tenderness Neurological exam: PRESENT: alert, awake, oriented to person, oriented to place, oriented to time, oriented to situation, CN II-XII grossly intact. ABSENT: motor sensory deficit Results Laboratory Results: 05/14/19 04:45 05/14/19 04:45 Assessment and Plan - Diagnosis (1) Diphenhydramine overdose Qualifiers: Encounter type: initial encounter Injury intent: intentional self-harm Qualified Code(s): T45.0X2A - Poisoning by antiallergic and antiemetic drugs, intentional self-harm, initial encounter Is this a current diagnosis for this admission?: Yes Plan: Alert and oriented x4. Mildly tachycardic. Continue supportive measures. (2) Intentional drug overdose Qualifiers: Encounter type: initial encounter Qualified Code(s): T50.902A - Poisoning by unspecified drugs, medicaments and biological substances, intentional self- harm, initial encounter Is this a current diagnosis for this admission?: Yes Plan: Continue supportive measures. Currently IVC. Pending psych recommendation. (3) Suicidal ideation Is this a current diagnosis for this admission?: Yes Plan: Denies any suicidal or homicidal ideation. Interactive and engaging. Continue supportive measures. Currently IVC. Pending psych recommendation. (4) Amphetamine use disorder, severe, dependence Is this a current diagnosis for this admission?: Yes Plan: Monitor for withdrawal. Taper lorazepam slowly. (5) Bipolar affective disorder, current episode manic with psychotic symptoms Is this a current diagnosis for this admission?: Yes Plan: Continue supportive measures. Currently IVC. Pending psych recommendation. (6) Laceration of right wrist Qualifiers: Encounter type: initial encounter Qualified Code(s): S61.511A - Laceration without foreign body of right wrist, initial encounter Is this a current diagnosis for this admission?: Yes Plan: We will apply bacitracin ointment and Telfa (7) Opiate abuse, continuous Is this a current diagnosis for this admission?: Yes Plan: Urine toxicology on admission positive for amphetamine. Supportive measures. Monitor for withdrawal.
[2019-05-15] MEDS: NICOTINE 14 MG/24 HR PATCH.TD24 TD SCH (17:14)
[2019-05-15] MEDS ORDERED: LORAZEPAM 1 MG TABLET PO PRN (20:42)
[2019-05-15] MEDS: FAMOTIDINE 20 MG TABLET PO SCH (22:04)
[2019-05-16] MEDS ORDERED: NICOTINE 14 MG/24 HR PATCH.TD24 TD SCH (10:00)
[2019-05-16] MEDS: ENOXAPARIN SODIUM INJ 40 MG/0.4 ML DISP.SYRIN SUBCUT SCH (10:13)
[2019-05-16] MEDS: BACITRACIN ZINC OINTMENT 15 GM TP SCH (10:13)
[2019-05-16] MEDS: LORAZEPAM INJ 2 MG/1 ML VIAL IV SCH ×2 (10:13→16:24)
[2019-05-16] MEDS: NICOTINE 14 MG/24 HR PATCH.TD24 TD SCH (10:13)
[2019-05-16] MEDS: FAMOTIDINE INJ/PF 20 MG/2 ML SDV IV SCH (10:14)
[2019-05-16] MEDS: FAMOTIDINE 20 MG TABLET PO SCH ×2 (10:14→21:57)
--- NOTE | 2019-05-16 10:24 | PDOC PROGRESS REPORT ---
Subjective Progress Note for:: 05/16/19 Subjective:: JOHN THAPA is a 29 year old male who was discharged from the [facility] yesterday and was sent from [facility] to the emergency department on May 10 for agitation presents after a Benadryl overdose. The belief is that he took somewhere between 50 and 80 of the 25 mg capsules. In addition he attempted to cut his wrists. He is currently in restraints and extremely jittery and hyperactive. He was referred to the hospital service for admission. Psychiatry is seen the patient and he is on involuntary commitment. 05/15/2019. No acute events overnight. Patient comfortably sitting up in apparent distress, alert and oriented x4, cooperative with physical examination, denies any fever, chills, nausea, vomiting, diarrhea, constipation or any urinary symptoms. Patient very anxious to be discharged home. 05/16/2019. No acute events overnight. Patient was found to have sharp metal object in the room which was taken away by nursing staff. Resting in bed in no apparent distress, cooperative with physical examination but does not interact much, denies any auditory or visual hallucinations. Denies any fever, chills, nausea, vomiting, diarrhea, constipation or any urinary symptoms. Reason For Visit: SERIOUS OVERDOSE Physical Exam Vital Signs: Temp Pulse Resp BP Pulse Ox 98.2 F 87 16 123/82 100 05/16/19 07:55 05/16/19 07:55 05/16/19 07:55 05/16/19 07:55 05/16/19 07:55 Intake & Output 05/15/19 05/16/19 05/17/19 06:59 06:59 06:59 Intake Total 3435 2320 Output Total 2300 0 Balance 1135 2320 Weight 88.4 kg 86.3 kg General appearance: PRESENT: no acute distress, well-developed, well-nourished Head exam: PRESENT: atraumatic, normocephalic Respiratory exam: PRESENT: clear to auscultation shila. ABSENT: rales, rhonchi, wheezes Cardiovascular exam: PRESENT: RRR. ABSENT: diastolic murmur, rubs, systolic murmur GI/Abdominal exam: PRESENT: normal bowel sounds, soft. ABSENT: distended, guarding, mass, organolmegaly, rebound, tenderness Neurological exam: PRESENT: alert, awake, oriented to person, oriented to place, oriented to time, oriented to situation, CN II-XII grossly intact. ABSENT: motor sensory deficit Results Laboratory Results: 05/14/19 04:45 05/14/19 04:45 Assessment and Plan - Diagnosis (1) Diphenhydramine overdose Qualifiers: Encounter type: initial encounter Injury intent: intentional self-harm Qualified Code(s): T45.0X2A - Poisoning by antiallergic and antiemetic drugs, intentional self-harm, initial encounter Is this a current diagnosis for this admission?: Yes Plan: Alert and oriented x4. Mildly tachycardic. Continue supportive measures. (2) Intentional drug overdose Qualifiers: Encounter type: initial encounter Qualified Code(s): T50.902A - Poisoning by unspecified drugs, medicaments and biological substances, intentional self- harm, initial encounter Is this a current diagnosis for this admission?: Yes Plan: Continue supportive measures. Currently IVC. Pending psych recommendation. (3) Suicidal ideation Is this a current diagnosis for this admission?: Yes Plan: Denies any suicidal or homicidal ideation. Continue supportive measures. Currently IVC. Pending psych recommendation. (4) Amphetamine use disorder, severe, dependence Is this a current diagnosis for this admission?: Yes Plan: Monitor for withdrawal. Taper lorazepam slowly. (5) Bipolar affective disorder, current episode manic with psychotic symptoms Is this a current diagnosis for this admission?: Yes Plan: Denies any auditory or visual hallucinations. Continue supportive measures. Currently IVC. Pending psych recommendation. (6) Laceration of right wrist Qualifiers: Encounter type: initial encounter Qualified Code(s): S61.511A - Laceration without foreign body of right wrist, initial encounter Is this a current diagnosis for this admission?: Yes Plan: Wound looks clean. Extremity neurovascularly intact. Continue wound care. (7) Opiate abuse, continuous Is this a current diagnosis for this admission?: Yes Plan: Urine toxicology on admission positive for amphetamine. Supportive measures. Monitor for withdrawal.
--- NOTE | 2019-05-16 15:54 | PSYCHOLOGICAL NOTE ---
Psych Note - Psych Note Date seen by psych provider: 05/16/19 Time seen by psych provider: 03:10 Psych Note: Reason for Consult: Overdose on Benadryl and Self Harm Medication recommendations per [facility]'s contracted psychiatrist Dr. Allie BRUNO are as follows Thorazine 50 mg every 6 hours Cogentin 1 mg daily Impression/Plan: Patient is recommended for continued IVC. Patient presented after overdose on Benadryl and engaging of self harm (cut on wrists). Medication recommendations have been provided. Patient will be re-evaluated. Dr. Espinoza was consulted on the care and management of this patient; attending physician is in agreement with recommendations and disposition.
[2019-05-16] MEDS: CHLORPROMAZINE HCL 50 MG TABLET PO SCH (21:57)
[2019-05-16] MEDS: BENZTROPINE MESYLATE 1 MG TABLET PO SCH (21:57)
[2019-05-17] MEDS: CHLORPROMAZINE HCL 50 MG TABLET PO SCH ×3 (05:22→19:07)
[2019-05-17] MEDS: ENOXAPARIN SODIUM INJ 40 MG/0.4 ML DISP.SYRIN SUBCUT SCH (09:59)
--- NOTE | 2019-05-17 10:05 | PDOC PROGRESS REPORT ---
Subjective Progress Note for:: 05/17/19 Subjective:: JOHN THAPA is a 29 year old male who was discharged from the [place] yesterday and was sent from [place] to the emergency department on May 10 for agitation presents after a Benadryl overdose. The belief is that he took somewhere between 50 and 80 of the 25 mg capsules. In addition he attempted to cut his wrists. He is currently in restraints and extremely jittery and hyperactive. He was referred to the hospital service for admission. Psychiatry is seen the patient and he is on involuntary commitment. 05/15/2019. No acute events overnight. Patient comfortably sitting up in apparent distress, alert and oriented x4, cooperative with physical examination, denies any fever, chills, nausea, vomiting, diarrhea, constipation or any urinary symptoms. Patient very anxious to be discharged home. 05/16/2019. No acute events overnight. Patient was found to have sharp metal object in the room which was taken away by nursing staff. Resting in bed in no apparent distress, cooperative with physical examination but does not interact much, denies any auditory or visual hallucinations. Denies any fever, chills, nausea, vomiting, diarrhea, constipation or any urinary symptoms. 05/17/2019. No acute events overnight. Patient has been compliant with her medication intake, this morning patient sleeping easily arousable, denies any auditory visual isolation, denies any fever, chills, nausea, vomiting, diarrhea, constipation or any urinary symptoms. Reason For Visit: SERIOUS OVERDOSE Physical Exam Vital Signs: Temp Pulse Resp BP Pulse Ox 98.1 F 73 16 129/72 H 99 05/17/19 07:54 05/17/19 07:54 05/17/19 07:54 05/17/19 07:54 05/17/19 07:54 Intake & Output 05/16/19 05/17/19 05/18/19 06:59 06:59 06:59 Intake Total 2320 1740 Output Total 0 0 Balance 2320 1740 Weight 86.3 kg 85 kg General appearance: PRESENT: no acute distress, well-developed, well-nourished Head exam: PRESENT: atraumatic, normocephalic Respiratory exam: PRESENT: clear to auscultation shila. ABSENT: rales, rhonchi, wheezes Cardiovascular exam: PRESENT: RRR. ABSENT: diastolic murmur, rubs, systolic murmur GI/Abdominal exam: PRESENT: normal bowel sounds, soft. ABSENT: distended, guarding, mass, organolmegaly, rebound, tenderness Neurological exam: PRESENT: alert, awake, oriented to person, oriented to place, oriented to time, oriented to situation, CN II-XII grossly intact. ABSENT: motor sensory deficit Results Laboratory Results: 05/14/19 04:45 05/14/19 04:45 Assessment and Plan - Diagnosis (1) Diphenhydramine overdose Qualifiers: Encounter type: initial encounter Injury intent: intentional self-harm Qualified Code(s): T45.0X2A - Poisoning by antiallergic and antiemetic drugs, intentional self-harm, initial encounter Is this a current diagnosis for this admission?: Yes Plan: Alert and oriented x4. Mildly tachycardic. Continue supportive measures. Patient medically optimized and ready to be transferred to inpatient psych. (2) Intentional drug overdose Qualifiers: Encounter type: initial encounter Qualified Code(s): T50.902A - Poisoning by unspecified drugs, medicaments and biological substances, intentional self- harm, initial encounter Is this a current diagnosis for this admission?: Yes Plan: Continue supportive measures. Currently IVC. (3) Suicidal ideation Is this a current diagnosis for this admission?: Yes Plan: Denies any suicidal or homicidal ideation. Continue supportive measures. Currently IVC. Psych on board. Recommendations noted. Patient medically optimized and ready to be transferred to inpatient psych. (4) Amphetamine use disorder, severe, dependence Is this a current diagnosis for this admission?: Yes Plan: No sign of withdrawal. Monitor for withdrawal. Continue supportive measures. (5) Bipolar affective disorder, current episode manic with psychotic symptoms Is this a current diagnosis for this admission?: Yes Plan: Denies any auditory or visual hallucinations. Continue supportive measures. Currently IVC. (6) Laceration of right wrist Qualifiers: Encounter type: initial encounter Qualified Code(s): S61.511A - Laceration without foreign body of right wrist, initial encounter Is this a current diagnosis for this admission?: Yes Plan: Wound looks clean. Extremity neurovascularly intact. Continue wound care. (7) Opiate abuse, continuous Is this a current diagnosis for this admission?: Yes Plan: Urine toxicology on admission positive for amphetamine. Supportive measures. Monitor for withdrawal. (8) Acute psychosis Is this a current diagnosis for this admission?: Yes Plan: Resolved. Alert and oriented x4. Patient medically optimized and ready to be transferred to inpatient psych.
[2019-05-17] MEDS: NICOTINE 14 MG/24 HR PATCH.TD24 TD SCH (10:06)
[2019-05-17] MEDS: BACITRACIN ZINC OINTMENT 15 GM TP SCH (10:06)
[2019-05-17] MEDS: FAMOTIDINE 20 MG TABLET PO SCH ×2 (10:07→22:06)
--- NOTE | 2019-05-17 16:11 | PSYCHOLOGICAL NOTE ---
Psych Note - Psych Note Date seen by psych provider: 05/17/19 Psych Note: Reason for Consult: Overdose on Benadryl and Self Harm Chart review conducted Patient continues to report he want to leave. UPDATED Medication recommendations per [facility] contracted psychiatrist Dr. Allie BRUNO are as follows Thorazine 50 mg every 6 hours Cogentin 1 mg daily Please discontinue Ativan; patient has a significant substance abuse history Impression/Plan: Patient is recommended for continued IVC. Patient presented after overdose on Benadryl and engaging of self harm. Patient has 2 cuts going vertical on each wrist; all 4 cuts required stitches. Placement efforts are ongoing. Updated medication recommendations have been provided. Patient will be re-evaluated. Dr. Espinoza was consulted on the care and management of this patient; attending physician is in agreement with recommendations and disposition.
[2019-05-17] MEDS: BENZTROPINE MESYLATE 1 MG TABLET PO SCH (22:06)
[2019-05-18] MEDS: CHLORPROMAZINE HCL 50 MG TABLET PO SCH ×4 (03:01→18:19)
[2019-05-18] MEDS: NICOTINE 14 MG/24 HR PATCH.TD24 TD SCH (11:58)
[2019-05-18] MEDS: FAMOTIDINE 20 MG TABLET PO SCH ×2 (11:58→21:14)
[2019-05-18] MEDS: BACITRACIN ZINC OINTMENT 15 GM TP SCH (11:58)
[2019-05-18] MEDS: ENOXAPARIN SODIUM INJ 40 MG/0.4 ML DISP.SYRIN SUBCUT SCH (11:58)
--- NOTE | 2019-05-18 15:12 | PDOC PROGRESS REPORT ---
Subjective Progress Note for:: 05/18/19 Subjective:: JOHN THAPA is a 29 year old male who was discharged from the [place] yesterday and was sent from [place] to the emergency department on May 10 for agitation presents after a Benadryl overdose. The belief is that he took somewhere between 50 and 80 of the 25 mg capsules. In addition he attempted to cut his wrists. He is currently in restraints and extremely jittery and hyperactive. He was referred to the hospital service for admission. Psychiatry is seen the patient and he is on involuntary commitment. 05/15/2019. No acute events overnight. Patient comfortably sitting up in apparent distress, alert and oriented x4, cooperative with physical examination, denies any fever, chills, nausea, vomiting, diarrhea, constipation or any urinary symptoms. Patient very anxious to be discharged home. 05/16/2019. No acute events overnight. Patient was found to have sharp metal object in the room which was taken away by nursing staff. Resting in bed in no apparent distress, cooperative with physical examination but does not interact much, denies any auditory or visual hallucinations. Denies any fever, chills, nausea, vomiting, diarrhea, constipation or any urinary symptoms. 05/17/2019. No acute events overnight. Patient has been compliant with her medication intake, this morning patient sleeping easily arousable, denies any auditory visual isolation, denies any fever, chills, nausea, vomiting, diarrhea, constipation or any urinary symptoms. 05/18/2019. No acute events overnight. Patient pending transfer to inpatient psych. Patient resting in bed refusing to engage in any conversation, as per nursing staff, refusing to take his medication otherwise compliant with medical care. Reason For Visit: SERIOUS OVERDOSE Physical Exam Vital Signs: Temp Pulse Resp BP Pulse Ox 97.6 F 76 16 100/62 100 05/18/19 07:44 05/18/19 07:44 05/18/19 07:44 05/18/19 07:44 05/18/19 07:44 Intake & Output 05/17/19 05/18/19 05/19/19 06:59 06:59 06:59 Intake Total 1740 1405 811 Output Total 0 Balance 1740 1405 811 Weight 85 kg 83 kg General appearance: PRESENT: no acute distress, well-developed, well-nourished Head exam: PRESENT: atraumatic, normocephalic Respiratory exam: PRESENT: clear to auscultation shila. ABSENT: rales, rhonchi, wheezes Cardiovascular exam: PRESENT: RRR. ABSENT: diastolic murmur, rubs, systolic murmur GI/Abdominal exam: PRESENT: normal bowel sounds, soft. ABSENT: distended, guarding, mass, organolmegaly, rebound, tenderness Neurological exam: PRESENT: alert, awake, oriented to person, oriented to place, oriented to time, oriented to situation, CN II-XII grossly intact. ABSENT: motor sensory deficit Psychiatric exam: PRESENT: unusual affect Results Laboratory Results: 05/14/19 04:45 05/14/19 04:45 Assessment and Plan - Diagnosis (1) Diphenhydramine overdose Qualifiers: Encounter type: initial encounter Injury intent: intentional self-harm Qualified Code(s): T45.0X2A - Poisoning by antiallergic and antiemetic drugs, intentional self-harm, initial encounter Is this a current diagnosis for this admission?: Yes Plan: Alert and oriented x4. Mildly tachycardic. Continue supportive measures. Patient medically optimized and ready to be transferred to inpatient psych. (2) Intentional drug overdose Qualifiers: Encounter type: initial encounter Qualified Code(s): T50.902A - Poisoning by unspecified drugs, medicaments and biological substances, intentional self- harm, initial encounter Is this a current diagnosis for this admission?: Yes Plan: Continue supportive measures. Currently IVC. (3) Suicidal ideation Is this a current diagnosis for this admission?: Yes Plan: Denies any suicidal or homicidal ideation. Continue supportive measures. Currently IVC. Psych on board. Recommendations noted. Patient medically optimized and ready to be transferred to inpatient psych. (4) Amphetamine use disorder, severe, dependence Is this a current diagnosis for this admission?: Yes Plan: No sign of withdrawal. Monitor for withdrawal. Continue supportive measures. (5) Bipolar affective disorder, current episode manic with psychotic symptoms Is this a current diagnosis for this admission?: Yes Plan: Denies any auditory or visual hallucinations. Continue supportive measures. Currently IVC. (6) Laceration of right wrist Qualifiers: Encounter type: initial encounter Qualified Code(s): S61.511A - Laceration without foreign body of right wrist, initial encounter Is this a current diagnosis for this admission?: Yes Plan: Wound looks clean. Extremity neurovascularly intact. Continue wound care. (7) Opiate abuse, continuous Is this a current diagnosis for this admission?: Yes Plan: Urine toxicology on admission positive for amphetamine. Supportive measures. Monitor for withdrawal. (8) Acute psychosis Is this a current diagnosis for this admission?: Yes Plan: Resolved. Alert and oriented x4. Patient medically optimized and ready to be transferred to inpatient psych.
[2019-05-18] MEDS ORDERED: MAGNESIUM HYDROXIDE SUSP 30 ML UDCUP ONE (17:26)
[2019-05-18] MEDS: BENZTROPINE MESYLATE 1 MG TABLET PO SCH (21:14)
[2019-05-19] MEDS: CHLORPROMAZINE HCL 50 MG TABLET PO SCH ×3 (04:58→12:48)
[2019-05-19] MEDS ORDERED: OLANZAPINE INJ/PF 10 MG SDV IM ONE ×2 (05:00→06:00)
[2019-05-19] MEDS: BACITRACIN ZINC OINTMENT 15 GM TP SCH (10:59)
[2019-05-19] MEDS: ENOXAPARIN SODIUM INJ 40 MG/0.4 ML DISP.SYRIN SUBCUT SCH (11:00)
[2019-05-19] MEDS: FAMOTIDINE 20 MG TABLET PO SCH (11:00)
--- NOTE | 2019-05-19 11:15 | PDOC PROGRESS REPORT ---
Subjective Progress Note for:: 05/19/19 Subjective:: JOHN THAPA is a 29 year old male who was discharged from the [place] yesterday and was sent from [place] to the emergency department on May 10 for agitation presents after a Benadryl overdose. The belief is that he took somewhere between 50 and 80 of the 25 mg capsules. In addition he attempted to cut his wrists. He is currently in restraints and extremely jittery and hyperactive. He was referred to the hospital service for admission. Psychiatry is seen the patient and he is on involuntary commitment. 05/15/2019. No acute events overnight. Patient comfortably sitting up in apparent distress, alert and oriented x4, cooperative with physical examination, denies any fever, chills, nausea, vomiting, diarrhea, constipation or any urinary symptoms. Patient very anxious to be discharged home. 05/16/2019. No acute events overnight. Patient was found to have sharp metal object in the room which was taken away by nursing staff. Resting in bed in no apparent distress, cooperative with physical examination but does not interact much, denies any auditory or visual hallucinations. Denies any fever, chills, nausea, vomiting, diarrhea, constipation or any urinary symptoms. 05/17/2019. No acute events overnight. Patient has been compliant with her medication intake, this morning patient sleeping easily arousable, denies any auditory visual isolation, denies any fever, chills, nausea, vomiting, diarrhea, constipation or any urinary symptoms. 05/18/2019. No acute events overnight. Patient pending transfer to inpatient psych. Patient resting in bed refusing to engage in any conversation, as per nursing staff, refusing to take his medication otherwise compliant with medical care. 05/19/2019. Overnight patient was not happy with the way his medication was given and had an altercation with nursing staff, patient has been wanting to take a shower. Reason For Visit: SERIOUS OVERDOSE Physical Exam Vital Signs: Temp Pulse Resp BP Pulse Ox 97.7 F 57 L 14 105/49 L 100 05/19/19 04:02 05/19/19 04:02 05/19/19 04:02 05/19/19 04:02 05/19/19 04:02 Intake & Output 05/18/19 05/19/19 05/20/19 06:59 06:59 06:59 Intake Total 1405 1311 Balance 1405 1311 Weight 83 kg 85.4 kg General appearance: PRESENT: no acute distress, well-developed, well-nourished Respiratory exam: PRESENT: clear to auscultation shila. ABSENT: rales, rhonchi, wheezes Cardiovascular exam: PRESENT: RRR. ABSENT: diastolic murmur, rubs, systolic murmur GI/Abdominal exam: PRESENT: normal bowel sounds, soft. ABSENT: distended, guarding, mass, organolmegaly, rebound, tenderness Neurological exam: PRESENT: alert, awake, oriented to person, oriented to place, oriented to time, oriented to situation, CN II-XII grossly intact. ABSENT: motor sensory deficit Results Laboratory Results: 05/14/19 04:45 05/14/19 04:45 Assessment and Plan - Diagnosis (1) Diphenhydramine overdose Qualifiers: Encounter type: initial encounter Injury intent: intentional self-harm Qualified Code(s): T45.0X2A - Poisoning by antiallergic and antiemetic drugs, intentional self-harm, initial encounter Is this a current diagnosis for this admission?: Yes Plan: Alert and oriented x4. Mildly tachycardic. Continue supportive measures. Patient medically optimized and ready to be transferred to inpatient psych. (2) Intentional drug overdose Qualifiers: Encounter type: initial encounter Qualified Code(s): T50.902A - Poisoning by unspecified drugs, medicaments and biological substances, intentional self- harm, initial encounter Is this a current diagnosis for this admission?: Yes Plan: Continue supportive measures. Currently IVC. (3) Suicidal ideation Is this a current diagnosis for this admission?: Yes Plan: Denies any suicidal or homicidal ideation. Continue supportive measures. Currently IVC. Psych on board. Recommendations noted. Patient medically optimized and ready to be transferred to inpatient psych. (4) Amphetamine use disorder, severe, dependence Is this a current diagnosis for this admission?: Yes Plan: No sign of withdrawal. Monitor for withdrawal. Continue supportive measures. (5) Bipolar affective disorder, current episode manic with psychotic symptoms Is this a current diagnosis for this admission?: Yes Plan: Denies any auditory or visual hallucinations. Continue supportive measures. Currently IVC. (6) Laceration of right wrist Qualifiers: Encounter type: initial encounter Qualified Code(s): S61.511A - Laceration without foreign body of right wrist, initial encounter Is this a current diagnosis for this admission?: Yes Plan: Wound looks clean. Extremity neurovascularly intact. Continue wound care. (7) Opiate abuse, continuous Is this a current diagnosis for this admission?: Yes Plan: Urine toxicology on admission positive for amphetamine. Supportive measures. Monitor for withdrawal.
[2019-05-19] MEDS: NICOTINE 14 MG/24 HR PATCH.TD24 TD SCH (12:48)
--- NOTE | 2019-05-19 15:44 | PSYCHOLOGICAL NOTE ---
Psych Note - Psych Note Date seen by psych provider: 05/18/19 Time seen by psych provider: 09:50 - Re evaluation Psych Note: Presenting Problem: Patient is a medical admit after coming to ED on 05/13/2019 for an overdose of Benadryl and self inflicted cuts to both arms. Today he said "Yeah I know why I am here." When asked to explain why he stated "I don't want to talk about it." He denied current suicidal ideation. He stated his intention was not to hurt/harm/kill self but would not talk about anything. He did not engage in evaluation. He presented guarded/reserved and stayed laying in bed. Diagnosis: Overdose Self Injurious Behavior via cutting arms Suicidal Ideation Impression/Plan: Recommendation to continue FULL IVC and seek inpatient hospitalization. Patient was guarded, reserved and not engaged in evaluation. Per medical documentation there is mood lability (irritability, euthymic) especially surrounding not getting what he wants when he wants it. Consulted with Dr. Espinoza regarding the management and care of patient. Attending Hospitalist aware of recommendations and in agreement.
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
[2019-05-19 16:20] VITALS: BP 131/84
--- NOTE | 2019-05-20 16:09 | PDOC DISCHARGE SUMMARY ---
Impression - Admit/DC Date/PCP Admission Date/Primary Care Provider: 05/13/19 09:31 Discharge Date: 05/19/19 - Discharge Diagnosis (1) Diphenhydramine overdose Is this a current diagnosis for this admission?: Yes (2) Intentional drug overdose Is this a current diagnosis for this admission?: Yes (3) Suicidal ideation Is this a current diagnosis for this admission?: Yes (4) Amphetamine use disorder, severe, dependence Is this a current diagnosis for this admission?: Yes (5) Bipolar affective disorder, current episode manic with psychotic symptoms Is this a current diagnosis for this admission?: Yes (6) Laceration of right wrist Is this a current diagnosis for this admission?: Yes (7) Opiate abuse, continuous Is this a current diagnosis for this admission?: Yes - Additional Information Resuscitation Status: Full Code Discharge Diet: As Tolerated Discharge Activity: Activity As Tolerated Referrals: [facility] [Provider Group] Prescriptions: Benztropine Mesylate [Cogentin 1 mg Tablet] 1 mg PO DAILY 30 Days #30 tablet Chlorpromazine HCl [Thorazine 50 mg Tablet] 50 mg PO BID 30 Days #60 tablet Home Medications: Benztropine Mesylate [Cogentin 1 mg Tablet] 1 mg PO DAILY 30 Days #30 tablet 05/19/19 Chlorpromazine HCl [Thorazine 50 mg Tablet] 50 mg PO BID 30 Days #60 tablet 05/19/19 History of Present Illiness History of Present Illness: JOHN THAPA is a 29 year old male who was discharged from the [place] yesterday and was sent from [place] to the emergency department on May 10 for agitation presents after a Benadryl overdose. The belief is that he took somewhere between 50 and 80 of the 25 mg capsules. In addition he attempted to cut his wrists. He is currently in restraints and extremely jittery and hyperactive. He was referred to the hospital service for admission. Psychiatry is seen the patient and he is on involuntary commitment. Hospital Course Hospital Course: (1) Diphenhydramine overdose Alert and oriented x4. Was admitted to telemetry, supportive measures. He was a started IVC by psych. Later cleared to be discharged home on Thorazine and Cogentin. Please refer to psych note. (2) Intentional drug overdose Continued supportive measures. He was a started IVC by psych. Later cleared to be discharged home on Thorazine and Cogentin. Please refer to psych note. (3) Suicidal ideation Denied any suicidal or homicidal ideation. Supportive measures. Psych on board. Recommendations noted. He was a started IVC by psych. Later cleared to be discharged home on Thorazine and Cogentin. Please refer to psych note. (4) Amphetamine use disorder, severe, dependence No sign of withdrawal. Supportive measures. (5) Bipolar affective disorder, current episode manic with psychotic symptoms Denied any auditory or visual hallucinations. He was a started IVC by psych. Later cleared to be discharged home on Thorazine and Cogentin. Please refer to psych note. (6) Laceration of right wrist Wound looks clean. Bilateral upper extremity neurovascularly intact. (7) Opiate abuse, continuous Urine toxicology on admission positive for amphetamine. Supportive measures. Monitored for withdrawal. Physical Exam Vital Signs: Temp Pulse Resp BP Pulse Ox 98.3 F 68 18 131/84 H 99 05/19/19 16:16 05/19/19 16:16 05/19/19 16:16 05/19/19 16:16 05/19/19 16:16 Intake & Output 05/19/19 05/20/19 05/21/19 06:59 06:59 06:59 Intake Total 1311 Balance 1311 Weight 85.4 kg 85.4 kg General appearance: PRESENT: no acute distress, well-developed, well-nourished Head exam: PRESENT: atraumatic, normocephalic Respiratory exam: PRESENT: clear to auscultation shila. ABSENT: rales, rhonchi, wheezes Pulses: PRESENT: normal dorsalis pedis pul GI/Abdominal exam: PRESENT: normal bowel sounds, soft. ABSENT: distended, guarding, mass, organolmegaly, rebound, tenderness Extremities exam: PRESENT: full ROM, other - Bilateral wrist wounds look clean, no sign of infection, no irritation, no discharge no swelling no erythema. Neurovascularly intact.. ABSENT: calf tenderness, clubbing, pedal edema Neurological exam: PRESENT: alert, awake, oriented to person, oriented to place, oriented to time, oriented to situation, CN II-XII grossly intact. ABSENT: motor sensory deficit Skin exam: PRESENT: dry, intact, warm. ABSENT: cyanosis, rash Results Laboratory Results: WBC 6.0 10^3/uL (4.0-10.5) 05/14/19 04:45 RBC 4.95 10^6/uL (4.35-5.55) 05/14/19 04:45 Hgb 14.5 g/dL (13.5-17.0) 05/14/19 04:45 Hct 42.6 % (37.9-51.0) 05/14/19 04:45 MCV 86 fl (80-97) 05/14/19 04:45 MCH 29.2 pg (27.0-33.4) 05/14/19 04:45 MCHC 34.0 g/dL (32.0-36.0) 05/14/19 04:45 RDW 13.6 % (11.5-14.0) 05/14/19 04:45 Plt Count 165 10^3/uL (150-450) 05/14/19 04:45 Lymph % (Auto) 33.1 % (13-45) 05/14/19 04:45 [place] % (Auto) 12.1 % (3-13) 05/14/19 04:45 Eos % (Auto) 1.4 % (0-6) 05/14/19 04:45 Baso % (Auto) 0.7 % (0-2) 05/14/19 04:45 Absolute Neuts (auto) 3.1 10^3/uL (1.7-8.2) 05/14/19 04:45 Absolute Lymphs (auto) 2.0 10^3/uL (0.5-4.7) 05/14/19 04:45 Absolute Monos (auto) 0.7 10^3/uL (0.1-1.4) 05/14/19 04:45 Absolute Eos (auto) 0.1 10^3/uL (0.0-0.6) 05/14/19 04:45 Absolute Basos (auto) 0.0 10^3/uL (0.0-0.2) 05/14/19 04:45 Seg Neutrophils % 52.7 % (42-78) 05/14/19 04:45 Sodium 139.5 mmol/L (137-145) 05/14/19 04:45 Potassium 3.9 mmol/L (3.6-5.0) 05/14/19 04:45 Chloride 106 mmol/L (98-107) 05/14/19 04:45 Carbon Dioxide 25 mmol/L (22-30) 05/14/19 04:45 Anion Gap 9 (5-19) 05/14/19 04:45 BUN 9 mg/dL (7-20) 05/14/19 04:45 Creatinine 0.91 mg/dL (0.52-1.25) 05/14/19 04:45 Est GFR ( Amer) > 60 (>60) 05/14/19 04:45 Est GFR (MDRD) Non-Af > 60 (>60) 05/14/19 04:45 Glucose 86 mg/dL (75-110) 05/14/19 04:45 Calcium 8.8 mg/dL (8.4-10.2) 05/14/19 04:45 Magnesium 2.1 mg/dL (1.6-2.3) 05/14/19 04:45 Total Bilirubin 0.9 mg/dL (0.2-1.3) 05/14/19 04:45 Direct Bilirubin 0.2 mg/dL (0.0-0.4) 05/14/19 04:45 Neonat Total Bilirubin Not Reportable 05/14/19 04:45 Neonat Direct Bilirubin Not Reportable 05/14/19 04:45 Neonat Indirect Bili Not Reportable 05/14/19 04:45 AST 38 U/L (17-59) 05/14/19 04:45 ALT 17 U/L (<50) 05/14/19 04:45 Alkaline Phosphatase 33 U/L (38-126) L 05/14/19 04:45 Total Protein 6.8 g/dL (6.3-8.2) 05/14/19 04:45 Albumin 3.6 g/dL (3.5-5.0) 05/14/19 04:45 Urine Color YELLOW 05/13/19 01:03 Urine Appearance CLEAR 05/13/19 01:03 Urine pH 6.0 (5.0-9.0) 05/13/19 01:03 Ur Specific [place] 1.006 05/13/19 01:03 Urine Protein NEGATIVE mg/dL (NEGATIVE) 05/13/19 01:03 Urine Glucose (UA) NEGATIVE mg/dL (NEGATIVE) 05/13/19 01:03 Urine Ketones NEGATIVE mg/dL (NEGATIVE) 05/13/19 01:03 Urine Blood NEGATIVE (NEGATIVE) 05/13/19 01:03 Urine Nitrite NEGATIVE (NEGATIVE) 05/13/19 01:03 Urine Bilirubin NEGATIVE (NEGATIVE) 05/13/19 01:03 Urine Urobilinogen NEGATIVE mg/dL (<2.0) 05/13/19 01:03 Ur Leukocyte Esterase NEGATIVE (NEGATIVE) 05/13/19 01:03 Urine WBC (Auto) 1 /HPF 05/13/19 01:03 Urine RBC (Auto) 0 /HPF 05/13/19 01:03 Squamous Epi Cells Auto <1 /HPF 05/13/19 01:03 Urine Ascorbic Acid NEGATIVE (NEGATIVE) 05/13/19 01:03 Salicylates < 1.0 mg/dL (2.0-20.0) L 05/13/19 00:22 Urine Opiates Screen NEGATIVE 05/13/19 01:03 Urine Methadone Screen NEGATIVE 05/13/19 01:03 Acetaminophen < 10 ug/mL (10-30) L 05/13/19 00:22 Ur Barbiturates Screen NEGATIVE 05/13/19 01:03 Carbamazepine < 2.4 ug/mL (4.0-12.0) L 05/13/19 10:19 Ur Phencyclidine Scrn NEGATIVE 05/13/19 01:03 Ur Amphetamines Screen UNCONFIRMED POSITIVE 05/13/19 01:03 U Benzodiazepines Scrn NEGATIVE 05/13/19 01:03 Urine Cocaine Screen NEGATIVE 05/13/19 01:03 U Marijuana (THC) Screen NEGATIVE 05/13/19 01:03 Serum Alcohol < 10 mg/dL (NONE DETECTED) 05/13/19 00:22 Stroke Is this a Stroke Patient?: No Acute Heart Failure - Is this a Heart Failure Patient?: No
== END 2019-05-19 16:54 | disposition home or self-care (01) | DRG 605 ==
LOC: ER 00:09 → EH 09:01 → OBSVTOIN 09:31 → 4N 09:45 → 3W 11:45
PROVIDERS: ADMIT Hospitalist; ATTEND Hospitalist
PROC: 0HQEXZZ Repair Left Lower Arm Skin, External Approach (ICD-10-PCS; principal; 2019-05-13)
PROC: 3E0234Z Introduction of Serum, Toxoid and Vaccine into Muscle, Percutaneous Approach (ICD-10-PCS; 2019-05-13)
DX: S61.511A Laceration without foreign body of right wrist, initial encounter (principal); F15.20 Other stimulant dependence, uncomplicated; F31.2 Bipolar disorder, current episode manic severe with psychotic features; T45.0X2A Poisoning by antiallergic and antiemetic drugs, intentional self-harm, initial encounter; Y92.9 Unspecified place or not applicable; X78.8XXA Intentional self-harm by other sharp object, initial encounter; Y92.39 Other specified sports and athletic area as the place of occurrence of the external cause; Z23 Encounter for immunization
CPT/HCPCS: 36415; 51702; 80053; 80156; 80307; 81001; 83735; 85025; 90715; 93005; 93010; 96361; 96374; 99285; J1650; J2060; J3490; J7030; S0028